=== PATIENT | male | born 1950 | race Caucasian/White ===

== ENCOUNTER → 2017-12-05 10:44 | Outpatient (CLI) | payer MEDICARE, OTHER, SELFPAY ==
[2017-12-05 11:06] LABS: Abs Immature Grans 0.01 k/cumm (0.0-0.09); Absolute Basophil Count 0.02 k/cumm (0.0-0.2); Absolute Eosinophil Count 0.02 k/cumm (0.0-0.7); Absolute Lymphocyte Count 0.22 k/cumm (1.2-3.4); Absolute Monocyte Count 0.57 k/cumm (0.11-0.7); Absolute Neutrophil Count 1.76 k/cumm (1.2-6.7); Basophils % 0.8; Eosinophils % 0.8; HCT 37.9 % (40.0-50.0); HGB 13.3 g/dL (13.5-17.5); Immature Grans % 0.4; Lymphocytes % 8.5; Mean Corp. HGB Concentration 35.1 g/dL (32.0-36.0); Mean Corpuscular Hemoglobin 29.2 pg (27.0-33.0); Mean Corpuscular Volume 83.3 fL (80-95); Monocytes % 21.9; Neutrophils % 67.6; Platelet Count 101 x1000/uL (130-400); RBC 4.55 m/cumm (4.50-6.00); RBC Distribution Width 17.5 % (11.8-14.1)
[2017-12-05 11:10] LABS: ALT 24 U/L (12-78); AST 15 U/L (15-37); Albumin 3.6 g/dL (3.4-5.0); Alkaline Phosphatase 74 U/L (46-116); Anion Gap 6.9 mmol/L (3-11); BUN 13 mg/dL (7-18); Bilirubin, Total 0.8 mg/dL (0.2-1.0); CO2 28.1 mmol/L (21.0-32.0); CREATININE 0.84 mg/dL (0.70-1.30); Calcium 8.6 mg/dL (8.5-10.1); Chloride 103 mmol/L (98-107); Glucose 171 mg/dL (70-100); Potassium 4.3 mmol/L (3.5-5.1); Sodium 138 mmol/L (136-145); Total Protein 7.1 g/dL (6.4-8.2)
== END ==
PROVIDERS: PCP Nurse Practitioner Family; Visit Provider Internal Medicine Medical Oncology
DX: C15.5 Malignant neoplasm of lower third of esophagus (principal)
CPT/HCPCS: 36415; 80053; 85025

== ENCOUNTER 2018-05-16 10:23 | Outpatient (CLI) | payer MEDICARE, OTHER, SELFPAY ==
[2018-05-16 10:44] LABS: Abs Immature Grans 0.01 k/cumm (0.0-0.09); Absolute Basophil Count 0.01 k/cumm (0.0-0.2); Absolute Eosinophil Count 0.06 k/cumm (0.0-0.7); Absolute Lymphocyte Count 0.88 k/cumm (1.2-3.4); Absolute Neutrophil Count 2.39 k/cumm (1.2-6.7); Basophils % 0.3; Eosinophils % 1.6; HCT 38.7 % (40.0-50.0); HGB 13.3 g/dL (13.5-17.5); Immature Grans % 0.3; Lymphocytes % 23.5; Mean Corp. HGB Concentration 34.4 g/dL (32.0-36.0); Mean Corpuscular Hemoglobin 28.5 pg (27.0-33.0); Mean Corpuscular Volume 82.9 fL (80-95); Mean Platelet Volume 9.5 fL (8.0-11.0); Monocytes % 10.7; Neutrophils % 63.6; Platelet Count 120 x1000/uL (130-400); RBC 4.67 m/cumm (4.50-6.00); RBC Distribution Width 14.9 % (11.8-14.1); White Blood Cell Count 3.75 k/cumm (4.4-10.8)
[2018-05-16 10:58] LABS: ALT 21 U/L (12-78); AST 12 U/L (15-37); Albumin 3.6 g/dL (3.4-5.0); Alkaline Phosphatase 69 U/L (46-116); Anion Gap 9.2 mmol/L (3-11); BUN 16 mg/dL (7-18); Bilirubin, Total 0.8 mg/dL (0.2-1.0); CO2 27.8 mmol/L (21.0-32.0); CREATININE 0.85 mg/dL (0.70-1.30); Calcium 9.2 mg/dL (8.5-10.1); Chloride 106 mmol/L (98-107); Glucose 111 mg/dL (70-100); Potassium 3.9 mmol/L (3.5-5.1); Sodium 143 mmol/L (136-145)
== END 2018-05-16 10:43 ==
PROVIDERS: PCP Nurse Practitioner Family; Visit Provider Internal Medicine Medical Oncology
DX: C15.5 Malignant neoplasm of lower third of esophagus (principal)
CPT/HCPCS: 36415; 80053; 85025

== ENCOUNTER → 2018-09-16 10:43 | Outpatient (BNVA) | payer MEDICARE, OTHER, SELFPAY | PROVIDERS: PCP Nurse Practitioner Family; Referring Provider Nurse Practitioner Family; Visit Provider Nurse Practitioner Gerontology | DX: N40.1 Benign prostatic hyperplasia with lower urinary tract symptoms (principal); N40.3 Nodular prostate with lower urinary tract symptoms; N21.0 Calculus in bladder; R97.20 Elevated prostate specific antigen [PSA]; R82.71 Bacteriuria; B96.89 Other specified bacterial agents as the cause of diseases classified elsewhere | CPT/HCPCS: 51705; 81003; 99205 ==

== ENCOUNTER 2018-09-16 12:17 | Outpatient (CLI) | payer MEDICARE, OTHER, SELFPAY ==
[2018-09-17 10:02] LABS: PSA, Screening 3.5 ng/ml (0-4.5)
== END 2018-09-16 12:37 ==
PROVIDERS: PCP Nurse Practitioner Family; Visit Provider Nurse Practitioner Gerontology
DX: N40.2 Nodular prostate without lower urinary tract symptoms (principal); Z12.5 Encounter for screening for malignant neoplasm of prostate; N40.1 Benign prostatic hyperplasia with lower urinary tract symptoms; N40.3 Nodular prostate with lower urinary tract symptoms; N21.0 Calculus in bladder; R97.20 Elevated prostate specific antigen [PSA]; R82.71 Bacteriuria; B96.89 Other specified bacterial agents as the cause of diseases classified elsewhere
CPT/HCPCS: 51705; 81003; 84153; 99204; 99205; 87086

== ENCOUNTER 2018-09-16 14:46 | Outpatient (REF) | payer MEDICARE, SELFPAY | END 2018-09-16 15:06 | LOC: LBN 14:46 | PROVIDERS: PCP Nurse Practitioner Family; Visit Provider Nurse Practitioner Gerontology | DX: N21.0 Calculus in bladder (principal) | CPT/HCPCS: 87077; 87086; 87186 ==

== ENCOUNTER → 2018-10-13 10:05 | Outpatient (BNVA) | payer MEDICARE, SELFPAY | PROVIDERS: PCP Nurse Practitioner Family; Visit Provider Urology | DX: Z87.440 Personal history of urinary (tract) infections (principal); N21.0 Calculus in bladder; N40.1 Benign prostatic hyperplasia with lower urinary tract symptoms | CPT/HCPCS: 99214 ==

== ENCOUNTER 2018-10-23 14:00 | Outpatient (CLI) | payer MEDICARE, SELFPAY ==
[2018-10-23 14:27] LABS: Abs Immature Grans 0.02 k/cumm (0.0-0.09); Absolute Basophil Count 0.01 k/cumm (0.0-0.2); Absolute Eosinophil Count 0.04 k/cumm (0.0-0.7); Absolute Lymphocyte Count 0.71 k/cumm (1.2-3.4); Absolute Monocyte Count 0.37 k/cumm (0.11-0.7); Absolute Neutrophil Count 2.83 k/cumm (1.2-6.7); Basophils % 0.3; HCT 35.5 % (40.0-50.0); HGB 12.1 g/dL (13.5-17.5); Immature Grans % 0.5; Lymphocytes % 17.8; Mean Corp. HGB Concentration 34.1 g/dL (32.0-36.0); Mean Corpuscular Hemoglobin 29.7 pg (27.0-33.0); Mean Corpuscular Volume 87.2 fL (80-95); Mean Platelet Volume 8.5 fL (8.0-11.0); Monocytes % 9.3; Neutrophils % 71.1; Platelet Count 166 x1000/uL (130-400); RBC 4.07 m/cumm (4.50-6.00); RBC Distribution Width 14.2 % (11.8-14.1); White Blood Cell Count 3.98 k/cumm (4.4-10.8)
[2018-10-23 14:36] LABS: ALT 15 U/L (12-78); AST 10 U/L (15-37); Albumin 3.2 g/dL (3.4-5.0); Alkaline Phosphatase 76 U/L (46-116); Anion Gap 9.5 mmol/L (3-11); BUN 23 mg/dL (7-18); Bilirubin, Total 0.4 mg/dL (0.2-1.0); CO2 27.5 mmol/L (21.0-32.0); CREATININE 0.85 mg/dL (0.70-1.30); Calcium 8.7 mg/dL (8.5-10.1); Chloride 107 mmol/L (98-107); Glucose 103 mg/dL (70-100); Potassium 4.1 mmol/L (3.5-5.1); Sodium 144 mmol/L (136-145)
== END 2018-10-23 14:20 ==
PROVIDERS: PCP Nurse Practitioner Family
DX: C15.9 Malignant neoplasm of esophagus, unspecified (principal)
CPT/HCPCS: 36415; 80053; 85025

== ENCOUNTER 2018-11-13 14:18 | Inpatient (IN) | payer MEDICARE, SELFPAY ==
[2018-11-13] VITALS (19 sets, daily range): BP systolic 63–134; BP diastolic 43–83; PULSE 59–96; RESP 16–19; TEMP 35.5–36.5; O2SAT 97–100
--- NOTE | 2018-11-13 11:27 | HPE_ITS ---
Date of service: 11/13/18 Time of Service: 11:28 Assessment and Plan (1) Bladder stones: Current visit: No Status: Acute His most recent CT scan does show a large stone in his bladder. We will move ahead with cystoscopy, holmium laser the stone and stone evacuation. Since bladder stones tend to be associated with bladder outlet obstruction, we will go ahead and vaporized the prostate at the same time. I would expect that he will stay in the hospital at least overnight for continuous bladder irrigation. (2) BPH loc w urin obs/LUTS: Current visit: No Status: Chronic History of Present Illness Chief Complaint: Chief complaint: Bladder stone Narrative: This is a 67-year-old gentleman who has a past history significant for stones in his bladder. He was previously under the care of urologists in [place], [place] and also at [facility]. He had been identified as having an elevated PSA. The providers in [facility] did an ultrasound-guided biopsy which showed no evidence of malignancy. When he was identified as having bladder stones, the provider in [place], [place] perform cystoscopy and cystolitholapaxy. The stones were reportedly uric acid at that time. He was referred to my practice with lower urinary tract symptoms. He has had a CT scan which shows recurrent stones in the bladder. He is having some pelvic discomfort which he believes is related to his stones. He presents for cystoscopy, holmium laser of bladder stones with stone removal and transurethral resection of the prostate for his bladder outlet obstruction. He has not gone into urinary retention, but he gets up 5 to 6 times a night to void. He has chronic back and abdominal pain that he believes may be related to his bladder stones. Review of Systems Review of Systems No fevers or chills No vision change. Difficulty swallowing s/p esophagectomy No diabetes or thyroid dysfunction No sputum production or hemoptysis No chest pain No nausea, vomiting. Has abdominal pain > 6 months No seizures, strokes or peripheral neuropathy No bleeding disorders or anemia No gout. Chronic back pain [facility] Medical History Atrial fibrillation (Chronic) BPH (benign prostatic hyperplasia) (Chronic) Coronary artery disease (Chronic) Esophageal cancer (Acute) GERD (gastroesophageal reflux disease) (Chronic) High cholesterol (Chronic) History of bladder stone (Acute) Hypertension (Chronic) Neoplasm of pituitary gland (Acute) JONATAN (obstructive sleep apnea) (Chronic) Skin cancer of face (Acute) Surgical History (Updated 11/13/18 @ 11:05 by Shaniqua Henriquez) History of cataract surgery (Chronic) History of esophageal surgery (Acute) History of esophagogastroduodenoscopy (EGD) (Chronic) History of prostate biopsy (Acute) History of tonsillectomy (Chronic) Hx of abdominal surgery (Acute) Hx of aortic valve replacement (Acute) Hx of CABG (Chronic) Hx of colonoscopy (Chronic) Social History Smoking/Tobacco Use Status: Former Tobacco Use Drug use: Never Substance use type: does not use Do you feel safe at home: Yes Do you feel safe in your relationship?: Yes Meds Home Medications Medication Instructions Recorded Confirmed Type aspirin 81 mg tablet,delayed 81 mg PO DAILY 09/16/18 11/13/18 History release atorvastatin 10 mg tablet 10 mg PO QHS 09/16/18 11/13/18 History docusate sodium 100 mg capsule 100 mg PO QHS 09/16/18 11/13/18 History finasteride 5 mg tablet 5 mg PO DAILY 09/16/18 11/13/18 History metoprolol succinate 25 mg 25 mg PO DAILY 09/16/18 11/13/18 History tablet,extended release 24 hr tamsulosin 0.4 mg capsule 0.4 mg PO DAILY 09/16/18 11/13/18 History trazodone 50 mg tablet 50 mg PO DAILY 09/16/18 11/13/18 History acetaminophen [Tylenol] 650 mg PO Q6H PRN 11/10/18 11/13/18 History ibuprofen 400 mg PO QID PRN 11/10/18 11/13/18 History magnesium hydroxide [Milk of 10 ml PO HS 11/10/18 11/13/18 History Magnesia] Allergies Allergy/AdvReac Type Severity Reaction Status Date / Time No Known Allergies Allergy Verified 11/10/18 11:15 Exam Narrative Exam Narrative: He is in no current distress. He is cooperative. His vital signs are documented elsewhere His neck has scars related to his previous esophageal surgery His lungs are clear Cardiac regular rate and rhythm Abdomen is soft with no peritoneal signs There is no edema in the lower extremities He is awake, alert and oriented. Results Last Vital Signs Temp 35.5 C L 11/13/18 11:25 Pulse 59 L 11/13/18 11:25 Resp 18 11/13/18 11:25 BP 130/83 11/13/18 11:25 Pulse Ox 100 11/13/18 11:25
[2018-11-13] MEDS: Lactated Ringers 1,000 ML 80 ML IV ×3 (12:10→14:53)
[2018-11-13] MEDS: Droperidol 5 MG/2 ML VIAL (12:22)
[2018-11-13] MEDS: FAMOTIDINE 20 MG/50 ML BAG 100 MG (12:22)
[2018-11-13] MEDS: GENTAMICIN 120 MG in Normal Saline 100 ML 206 MG IVPB (12:23)
[2018-11-13] MEDS: Lidocaine 2% Jelly 11 ML SYR (12:50)
--- NOTE | 2018-11-13 12:59 | PROST_PTH ---
PATIENT: UMAIR DAVISON LOC: ICU U#:[id number] AGE/SX: 67/M ROOM: ICU.219 RE11/13/[address]: Aide Restrepo : 1950 BED: A DIS: 11/20/2018 SPEC #: [id number] RECD: 11/13/18 17:42 STATUS: KENYA REQ #: [id number] LAUREN: 11/13/18 12:[address]: Jasper Marie DEPT: Surgical Specimen RECD BY: Lucero Mata ENTERED: 11/13/18 17:42 SP TYPE: PROST OTHR DR: Lindy Dixon Tissues: 1 - PROSTATE CURRETTINGS Procedures: GROSS AND MICRO LEVEL 4 Comments: [id number]
[2018-11-13] MEDS: Normal Saline Flush 10 ML SYR IV (15:45)
[2018-11-13] MEDS: Ketorolac 15 MG/ML VIAL IVP (19:49)
[2018-11-13] MEDS: Sulfameth/Trimeth DS TAB 1 TAB PO (19:49)
[2018-11-13] MEDS: Normal Saline 1,000 ML 1000 ML IV (22:45)
[2018-11-13 23:23] LABS: HCT 23.9 % (40.0-50.0); HGB 7.9 g/dL (13.5-17.5)
[2018-11-13] MEDS: Docusate Sodium 100 MG CAP PO (23:23)
[2018-11-13] MEDS: Atorvastatin 10 MG TAB PO (23:23)
[2018-11-13] MEDS: Milk of Magnesia 30 ML CUP 10 ML PO (23:23)
[2018-11-14] VITALS (14 sets, daily range): BP systolic 82–108; BP diastolic 58–69; PULSE 79–95; RESP 16–20; TEMP 36–37.2; O2SAT 96–100
[2018-11-14] MEDS: traZODone 50 MG TAB PO ×2 (00:36→21:23)
--- NOTE | 2018-11-14 02:41 | NUR.NOTE ---
Nursing Note:Pt. received post TURP, AO x 3. with CBI on progress, obtained a bloody but clear output. At 2000 hrs. Scheduled meds given ,one of them is Toradol , after few minutes, pt complained of having hot flushes and feeling not good as verbalized. CBI output started to slowed down, then having bladder cramps, irrigated 4 x and had some large size of blood clots. Continue to monitor and suddendly, pt reported dizziness and pale looking. Blood pressure checked in auto machine was low, did manually and remains low, director of public health made aware, MD came to examined pt. NS Bolus administered, changes on b/p reading noted. Pt is feeling better and no pain voiced out until this time, CBI output is pinkish clear output. At 02:27, 1 unit of RBC as ordered initialized. No reactions or unusual changes observed until this time to pt. Continue to monitor. Call lights within reach.
[2018-11-14] MEDS: Acetaminophen 325 MG TAB 650 MG PO ×3 (03:17→19:33)
[2018-11-14] MEDS: Lactated Ringers 1,000 ML 150 ML IV ×2 (05:04→09:31)
--- NOTE | 2018-11-14 07:30 | ROE_ITS ---
REPORT OF OPERATIVE PROCEDURE DATE OF PROCEDURE November 13, 2018 PREOPERATIVE DIAGNOSES 1. Bladder stone. 2. Bladder outlet obstruction. POSTOPERATIVE DIAGNOSES 1. Bladder stone. 2. Bladder outlet obstruction. 3. Pathology pending. PROCEDURE Cystoscopy, Holmium laser of bladder stones with stone evacuation, transurethral resection of the pro state with vaporization of prostate. SURGEON Jasper Marie M.D. ANESTHESIA General. COMPLICATIONS None. ESTIMATED BLOOD LOSS 250 cc HISTORY This is a 67-year-old gentleman who has a past history of bladder stones. His previous urologist had treated him with a cystoscopic procedure to remove the stones. He has been treated medically for his bladder outlet obstruction. He now has recurrence of his bladder stones. He has abdominal and back pain, which he believes is rel ated to the stones. He has urinary frequency and gets up an average of five to six times a night to v oid. He presents now for Holmium laser lithotripsy of his bladder stones and transurethral resection of the prostate to remove any bladder outlet obstruction and hopefully prevent future stone formation . DESCRIPTION OF PROCEDURES The patient was brought to the Operating Room on 11/13/18, after successful induction of General anest hesia he was placed in the dorsal lithotomy position. His genitalia was prepped and draped. A #22-Nepalese rigid cystoscope was passed through the urethra into the bladder. The urethra and bladde r were inspected with a 30-degree lens. The pendulous, bulbous and membranous urethras all appeared normal with no strictures. The prostatic urethra showed lateral lobe enlargement with prominent blood vessels along the prostate. The bladder neck was entered. The bladder mucosa was inspected. Two yellow colored stones were seen w ithin the bladder. Each of these stones measured more than 2 centimeters in largest dimension. We then utilized a 1000 Micron Holmium laser fiber to fracture the stones. We used a power setting of 1.5 and a rate of 8. The stones fragmented easily and we were able to clear all the fragments out. Ermelinda oakley sent the stone fragments to Pathology for stone analysis. We then removed the cystoscope and passed a #24-Nepalese resectoscope sheath through the urethra into t he bladder. Transurethral resection of the prostate was performed from the bladder neck out to the ve rumontanum. We utilized bipolar cautery, all resected tissue was evacuated and sent to Pathology for permanent section. We then switched to the vaporization ball and vaporized the remainder of the prostate back to the lev el of the prostatic capsule, bleeding points that were encountered were cauterized with the coagulati on current. At the completion of the procedure, no arterial bleeding was seen. We filled the bladder with irrigan t. We removed the resectoscope and passed a #24-Nepalese hematuria catheter through the urethra into th e bladder. The catheter balloon was inflated with 30 cc of sterile water. Continuous bladder irrigati on was begun, traction was placed on the catheter until the irrigant became clear. The patient tolerated this procedure well with no complications. CC: KARLA Hernández
--- NOTE | 2018-11-14 07:31 | W.PM.PROGNOT ---
Date of Service Date of service: 11/14/18 Time of Service: 08:28 Assessment and Plan (1) BPH loc w urin obs/LUTS: Current visit: No Status: Chronic In reviewing his PCP, [facility] and [place] records, it looks like his baseline systolic BP is between 90 and 110 and his baseline HR is @ 70. With last evening his blood transfusion, it looks like we are closer to his baseline numbers. Given the last evening his hypotensive episode and acute blood loss anemia, we will plan on running his bladder irrigation 1 additional day. If his blood pressure remains an issue, we will consider an additional unit of blood transfusion. The other clinical concern especially in light of his long-standing bladder stones would be urosepsis after his procedure. Right now there are no signs or symptoms of urosepsis but we will continue to monitor and be mindful of this possibility. (2) Bladder stones: Current visit: No Status: Acute Subjective Interval history since last seen: Chief complaint: Postoperative day #1 The patient developed hypotension and dizziness overnight. We checked a hemoglobin which showed acute blood loss anemia with a hemoglobin of 7.9 His blood pressure initially responded to a fluid bolus but then drifted downward again. We then gave him 1 unit of packed red blood cells. Since then, he has felt better with no additional drowsiness. His morning blood work is not yet available. He has required hand irrigation of his catheter for blood clots. He has not had any fever or chills He has no nausea or vomiting Exam Narrative Exam Narrative: He looks chronically ill, but his color is a bit better than yesterday after his blood transfusion His blood pressure is back to his baseline His abdomen is soft with no bladder distention His morning labs are still pending Objective Objective Clinical Data: Abnormal lab results 11/13/18 11/13/18 Range/Units 23:12 23:12 Hgb 7.9 L (13.5-17.5) g/dL Hct 23.9 L (40.0-50.0) % Crossmatch See Detail Vital Signs Temperature 36.2 C L 11/14/18 04:49 Temperature Source Tympanic 11/14/18 00:40 Pulse 81 11/14/18 07:15 Pulse Rhythm Regular 11/14/18 03:26 Respiratory Rate 20 11/14/18 04:49 Respiratory Effort Non-Labored 11/14/18 03:26 Respiratory Depth Normal 11/14/18 03:26 Respiratory Pattern Normal 11/14/18 03:26 Blood Pressure 94/64 L 11/14/18 07:15 Pulse Oximetry 100 11/14/18 04:49 Respiratory End-tidal CO2 28 11/13/18 14:58 Oxygen Delivery Method Room Air 11/14/18 04:49 Oxygen Flow Rate 0 11/14/18 04:49 Pain Level 3 11/14/18 03:17 Comment 11/14/18 00:40 Intake & Output 11/13/18 11/13/18 11/14/18 11:59 23:59 11:59 Intake Total 3083.000 / 3083.000 2270 / 2270 Output Total 250 / 250 Balance 2833.000 / 2833.000 2270 / 2270 Weight 74.7 kg 77.1 kg Intake: IV 2783.000 / 2783.000 1999 / 1999 Oral 300 / 300 Blood Product 250 / 250 Rbc Leuko Reduced Unit 250 / 250 [id number] Other 20 / 20 Rbc Leuko Reduced Unit 20 / 20 [id number] Output: Estimated Blood Loss 250 / 250 Other: Urine Color Dark Red [place] Urine Appearance Hematuria Hematuria Comment 4 x manual irrigation done and urinary bag changed. tried decreasing infusion rate, urine immediatly turned red, increased infusion rate again, urine now pink Emesis Description None Laboratory Results Hgb 7.9 g/dL (13.5-17.5) L 11/13/18 23:12 Hct 23.9 % (40.0-50.0) L 11/13/18 23:12 Patient ABO/Rh O Negative 11/13/18 23:12 Antibody Screen Negative 11/13/18 23:12 Crossmatch See Detail 11/13/18 23:12
[2018-11-14 08:27] LABS: Anion Gap 9.3 mmol/L (3-11); BUN 28 mg/dL (7-18); CO2 24.7 mmol/L (21.0-32.0); Calcium 8.5 mg/dL (8.5-10.1); Chloride 105 mmol/L (98-107); Glucose 138 mg/dL (70-100); Potassium 4.5 mmol/L (3.5-5.1); Sodium 139 mmol/L (136-145)
[2018-11-14 08:29] LABS: Abs Immature Grans 0.02 k/cumm (0.0-0.09); Absolute Basophil Count 0.01 k/cumm (0.0-0.2); Absolute Lymphocyte Count 0.82 k/cumm (1.2-3.4); Absolute Monocyte Count 1.04 k/cumm (0.11-0.7); Absolute Neutrophil Count 7.67 k/cumm (1.2-6.7); Basophils % 0.1; HCT 25.9 % (40.0-50.0); HGB 8.6 g/dL (13.5-17.5); Immature Grans % 0.2; Lymphocytes % 8.6; Mean Corp. HGB Concentration 33.2 g/dL (32.0-36.0); Mean Corpuscular Hemoglobin 28.8 pg (27.0-33.0); Mean Corpuscular Volume 86.6 fL (80-95); Mean Platelet Volume 9.5 fL (8.0-11.0); Monocytes % 10.9; Neutrophils % 80.2; Platelet Count 190 x1000/uL (130-400); RBC 2.99 m/cumm (4.50-6.00); RBC Distribution Width 14.2 % (11.8-14.1); White Blood Cell Count 9.56 k/cumm (4.4-10.8)
[2018-11-14] MEDS: Sulfameth/Trimeth DS TAB 1 TAB PO ×2 (08:38→19:29)
[2018-11-14] MEDS: Finasteride 5 MG TAB PO (08:38)
[2018-11-14] MEDS: Tamsulosin 0.4 MG CAPCR PO (08:38)
[2018-11-14] MEDS: HYDROmorphone 2 MG/ML VIAL 0.5 MG IVP (14:38)
--- NOTE | 2018-11-14 16:54 | PDOC.CMIN ---
- If Service Date Differs Date of service: 11/14/18 Time of Service: 16:54 Care Management Initial Assess REASON FOR HOSPITALIZATION:: Bladder stone PAST MEDICAL HISTORY/PAST SURGICAL HISTORY:: Afib, BPH, CAD, esopageal ca, gerd, high cholsterol, hypertension, neoplasam of pituitary, sarah, skin ca. Surgical: cataract sx, esophageal, prostate biopsy, elevated PSA, tonsilectomy, aortic valve replacement, CABG PREVIOUS FUNCTIONAL STATUS/SOCIAL/FAMILY SUPPORTS:: Pt lives in [place], [place] with his , He has three children that are grown, he retired from factory work. He has had several health problems and multiple surgeries since 2015. He states he use to like to salas and fish but he has been unwell the last few years has not been able to. CURRENT FUNCTIONAL STATUS:: Pt is engaged with CM during assessment he is hopeful he will be discharged over the weekend. He understand he plan os to return home with the burris and have a voiding trial at Dr. Marie?s office on Saturday. He has been home with a burris in the past he does not think he will need home health this time. If the needs change he would be willing to have them in and it would be [facility]. ADVANCE DIRECTIVES:: None on file he does not want to complete at this time. Has patient been provided with information about the portal?: Yes Did the patient sign up for the portal?: No CODE STATUS:: Full Code INSURANCE COVERAGE / FINANCIAL ISSUES:: Medicare CURRENT HOME/COMMUNITY SERVICES/EQUIPMENT:: None POTENTIAL DISCHARGE NEEDS:: follow up with Dr. Marie and primary care after discharge. PATIENT/FAMILY EDUCATION NEEDS:: Discharge education, limitation and follow up plan of care. CM reviewed needs related to burris and education of what ti contact provider. Pt asks who do i call if the indwelling cath does not drain. CM reviewed calling Dr. Marie at the main hospital number. ANTICIPATED BARRIERS TO DISCHARGE:: none TRANSPORTATION:: Via private car with spouse. PLAN:: Alan continues to be acute he does have a continous bladder irrigation in place. He remians on IV fluids. He will be discharged when medically ready. CM to continue to assess for ongoing needs and discharge planning.
[2018-11-14] MEDS: Lactated Ringers 1,000 ML 100 ML IV (19:32)
[2018-11-14] MEDS: Milk of Magnesia 30 ML CUP 10 ML PO (21:23)
[2018-11-14] MEDS: Atorvastatin 10 MG TAB PO (21:23)
[2018-11-14] MEDS: Docusate Sodium 100 MG CAP PO (21:23)
[2018-11-15] VITALS (100 sets, daily range): BP systolic 73–120; BP diastolic 47–84; PULSE 68–166; RESP 11–60; TEMP 36.6–37.5; O2SAT 89–100
[2018-11-15 04:28] LABS: HCT 22.4 % (40.0-50.0); HGB 7.6 g/dL (13.5-17.5); Mean Corp. HGB Concentration 33.9 g/dL (32.0-36.0); Mean Corpuscular Hemoglobin 29.3 pg (27.0-33.0); Mean Corpuscular Volume 86.5 fL (80-95); Mean Platelet Volume 8.7 fL (8.0-11.0); Platelet Count 143 x1000/uL (130-400); RBC 2.59 m/cumm (4.50-6.00); RBC Distribution Width 14.5 % (11.8-14.1); White Blood Cell Count 6.39 k/cumm (4.4-10.8)
--- NOTE | 2018-11-15 04:32 | W.PM.PROGNOT ---
Date of Service Date of service: 11/15/18 Time of Service: 04:32 Assessment and Plan (1) Atrial fibrillation: Current visit: Yes Status: Chronic PAF, probable rate related ischemia. Will transfer ICU, control rate with added beta haim, check electrolytes, Mg and troponins. Subjective Interval history since last seen: 67 male s/p bladder stone, h/o PAF, CAD. Patient [id number] not feeling right, AF with RVR noted. Patient states to me he feels a little nauseous, no CP or SOB. On exam BP 88/50 with pulse 168; lungs clear, heart irr/irr. EKG shows AF with NSSTTWCs Objective Objective Clinical Data: Abnormal lab results 11/13/18 11/14/18 11/14/18 Range/Units 23:12 07:10 07:10 RBC 2.99 L (4.50-6.00) m/cumm Hgb 8.6 L (13.5-17.5) g/dL Hct 25.9 L (40.0-50.0) % RDW 14.2 H (11.8-14.1) % Absolute Neutrophils 7.67 H (1.2-6.7) k/cumm Absolute Lymphocytes 0.82 L (1.2-3.4) k/cumm Absolute Monocytes 1.04 H (0.11-0.7) k/cumm BUN 28 H (7-18) mg/dL Glucose 138 H (70-100) mg/dL Crossmatch See Detail 11/15/18 Range/Units 04:20 RBC 2.59 L (4.50-6.00) m/cumm Hgb 7.6 L (13.5-17.5) g/dL Hct 22.4 L (40.0-50.0) % RDW 14.5 H (11.8-14.1) % Absolute Neutrophils (1.2-6.7) k/cumm Absolute Lymphocytes (1.2-3.4) k/cumm Absolute Monocytes (0.11-0.7) k/cumm BUN (7-18) mg/dL Glucose (70-100) mg/dL Crossmatch Vital Signs Temperature 36.8 C 11/15/18 03:50 Temperature Source Skin 11/15/18 03:50 Pulse 113 H 11/15/18 03:50 Pulse Rhythm Regular 11/14/18 18:56 Respiratory Rate 18 11/15/18 03:50 Respiratory Effort Non-Labored 11/14/18 18:56 Respiratory Depth Normal 11/14/18 18:56 Respiratory Pattern Normal 11/14/18 18:56 Blood Pressure 88/50 L 11/15/18 03:50 Pulse Oximetry 100 11/15/18 03:50 Respiratory End-tidal CO2 28 11/13/18 14:58 Oxygen Delivery Method Room Air 11/15/18 03:50 Oxygen Flow Rate 0 11/15/18 03:50 Pain Level 0 11/15/18 03:50 Comment 11/15/18 03:50 Intake & Output 11/14/18 11/14/18 11/15/18 11:59 23:59 11:59 Intake Total 3057.5 / 5797.5 2740 / 5797.5 300 / 300 Balance 3057.5 / 5797.5 2740 / 5797.5 300 / 300 Intake: IV 2667.5 / 4667.5 2000 / 4667.5 Oral 120 / 860 740 / 860 300 / 300 Blood Product 250 / 250 Rbc Leuko Reduced Unit 250 / 250 [id number] Other 20 / Rbc Leuko Reduced Unit / [id number] Other: Urine Color Pale [place] Urine Appearance Hematuria Clear Cloudy Comment No increase in blood flow when pt moved to side of bed. Irrigigated by Dr Hilliard at 1700 hrs. and no clots obtained, been flowing clear pinkish output. Laboratory Results WBC 6.39 k/cumm (4.4-10.8) D 11/15/18 04:20 RBC 2.59 m/cumm (4.50-6.00) L 11/15/18 04:20 Hgb 7.6 g/dL (13.5-17.5) L 11/15/18 04:20 Hct 22.4 % (40.0-50.0) L 11/15/18 04:20 MCV 86.5 fL (80-95) 11/15/18 04:20 MCH 29.3 pg (27.0-33.0) 11/15/18 04:20 MCHC 33.9 g/dL (32.0-36.0) 11/15/18 04:20 RDW 14.5 % (11.8-14.1) H 11/15/18 04:20 Plt Count 143 x1000/uL (130-400) 11/15/18 04:20 MPV 8.7 fL (8.0-11.0) 11/15/18 04:20 Immature Gran % 0.2 11/14/18 07:10 80.2 11/14/18 07:10 8.6 11/14/18 07:10 10.9 11/14/18 07:10 0.0 11/14/18 07:10 0.1 11/14/18 07:10 Absolute Neutrophils 7.67 k/cumm (1.2-6.7) H 11/14/18 07:10 Absolute Lymphocytes 0.82 k/cumm (1.2-3.4) L 11/14/18 07:10 Absolute Monocytes 1.04 k/cumm (0.11-0.7) H 11/14/18 07:10 Absolute Eosinophils 0.00 k/cumm (0.0-0.7) 11/14/18 07:10 Absolute Basophils 0.01 k/cumm (0.0-0.2) 11/14/18 07:10 Sodium 139 mmol/L (136-145) 11/14/18 07:10 Potassium 4.5 mmol/L (3.5-5.1) 11/14/18 07:10 Chloride 105 mmol/L (98-107) 11/14/18 07:10 Carbon Dioxide 24.7 mmol/L (21.0-32.0) 11/14/18 07:10 9.3 mmol/L (3-11) 11/14/18 07:10 BUN 28 mg/dL (7-18) H 11/14/18 07:10 1.10 mg/dL (0.70-1.30) 11/14/18 07:10 >= 60.00 (mL/min/1.73m2) 11/14/18 07:10 Glucose 138 mg/dL (70-100) H 11/14/18 07:10 Calcium 8.5 mg/dL (8.5-10.1) 11/14/18 07:10 Patient ABO/Rh O Negative 11/13/18 23:12 Antibody Screen Negative 11/13/18 23:12 Crossmatch See Detail 11/13/18 23:12
[2018-11-15 04:55] LABS: Troponin I < 0.05 ng/mL (0.00-0.06)
[2018-11-15 04:58] LABS: Albumin 2.7 g/dL (3.4-5.0); BUN 24 mg/dL (7-18); Bilirubin, Total 0.5 mg/dL (0.2-1.0); CREATININE 0.97 mg/dL (0.70-1.30); Calcium 8.4 mg/dL (8.5-10.1); Glucose 123 mg/dL (70-100); Total Protein 5.7 g/dL (6.4-8.2)
--- NOTE | 2018-11-15 04:58 | NUR.NOTE ---
Nursing Note: Upon receipt of patient after start of shift at 0300, pt had been c/o not feeling right, feeling slightly nauseous, and slightly dizzy. He had a similar episode the night before however this time felt different. VS at this time with BP 95/61, recheck after several minutes 88/50. HR elevated at 113, irregularly irregular. Denies chest pain or pressure. While patient hooked to sat monitor, heart rate up to 150's. Charge nurse already aware, speaking with doctor with order for EKG. See those results. Seen by hospitalist and transferred to ICU at 0445.
[2018-11-15 04:59] LABS: ALT 22 U/L (12-78); AST 10 U/L (15-37); Alkaline Phosphatase 104 U/L (46-116); Anion Gap 10.5 mmol/L (3-11); CO2 24.5 mmol/L (21.0-32.0); Chloride 106 mmol/L (98-107); Potassium 3.8 mmol/L (3.5-5.1); Sodium 141 mmol/L (136-145)
[2018-11-15] MEDS: Metoprolol 5 MG/5 ML VIAL IVP ×2 (05:08→05:25)
[2018-11-15] MEDS: Lactated Ringers 1,000 ML 100 ML IV ×3 (05:14→23:00)
[2018-11-15] MEDS: Verapamil 5 MG/2 ML VIAL IVP ×2 (05:40→06:04)
[2018-11-15] MEDS: traMADol 50 MG TAB PO (06:33)
[2018-11-15] MEDS: Verapamil 80 MG TAB 40 MG PO (06:50)
--- NOTE | 2018-11-15 07:25 | PDOC.CMPRO ---
- If Service Date Differs Date of service: 11/15/18 Time of Service: 07:25 Care Management Progress Note S/O:Alan was sitting up in bed talking with his when CM entered the room. He was pleasant and engaged readily, answering questions freely. Alan was transferred to the ICU during the night following an episode of rapid atrial fibrillation. He states he feels better but does not expect to go home until Saturday. He has received another unit of blood for a drop in Hgb from 8.6 yesterday to 7.6 this morning. The CBI has been stopped at this time. A: Alan is a 67 year old gentleman admitted to [facility] on 11/13/18 with a bladder stone P:Alan is currently in the ICu because of an episode of afib with RVR. His CBI has been stopped. he remains on IV fluids. He will be discharged when medically ready. CM to continue to assess for ongoing needs and will provide support to patient, family and discharge planning.
[2018-11-15] MEDS: Sulfameth/Trimeth DS TAB 1 TAB PO ×2 (08:05→20:33)
[2018-11-15] MEDS: Tamsulosin 0.4 MG CAPCR PO (08:05)
[2018-11-15] MEDS: Metoprolol CR 25 MG TABCR PO (08:06)
[2018-11-15] MEDS: Finasteride 5 MG TAB PO (08:06)
--- NOTE | 2018-11-15 08:21 | W.PM.PROGNOT ---
Date of Service Date of service: 11/15/18 Time of Service: 08:21 Subjective Interval history since last seen: Transferred to the ICU overnight due to rapid Afib. Remains rapid, with HR 120-150's. BP's still in 80's. Other than his chronic back pain, asymptomatic. Objective Objective Clinical Data: Abnormal lab results 11/14/18 11/14/18 11/15/18 Range/Units 07:10 07:10 04:20 RBC 2.99 L 2.59 L (4.50-6.00) m/cumm Hgb 8.6 L 7.6 L (13.5-17.5) g/dL Hct 25.9 L 22.4 L (40.0-50.0) % RDW 14.2 H 14.5 H (11.8-14.1) % Absolute Neutrophils 7.67 H (1.2-6.7) k/cumm Absolute Lymphocytes 0.82 L (1.2-3.4) k/cumm Absolute Monocytes 1.04 H (0.11-0.7) k/cumm BUN 28 H (7-18) mg/dL Glucose 138 H (70-100) mg/dL Calcium (8.5-10.1) mg/dL AST (15-37) U/L Total Protein (6.4-8.2) g/dL Albumin (3.4-5.0) g/dL 11/15/18 Range/Units 04:20 RBC (4.50-6.00) m/cumm Hgb (13.5-17.5) g/dL Hct (40.0-50.0) % RDW (11.8-14.1) % Absolute Neutrophils (1.2-6.7) k/cumm Absolute Lymphocytes (1.2-3.4) k/cumm Absolute Monocytes (0.11-0.7) k/cumm BUN 24 H (7-18) mg/dL Glucose 123 H (70-100) mg/dL Calcium 8.4 L (8.5-10.1) mg/dL AST 10 L (15-37) U/L Total Protein 5.7 L (6.4-8.2) g/dL Albumin 2.7 L (3.4-5.0) g/dL Vital Signs Temperature 37.3 C 11/15/18 06:33 Temperature Source Skin 11/15/18 03:50 Pulse 110 H 11/15/18 06:34 Pulse Rhythm Irregular 11/15/18 03:50 Respiratory Rate 18 11/15/18 03:50 Respiratory Effort 11/15/18 03:50 Respiratory Depth Normal 11/15/18 03:50 Respiratory Pattern Normal 11/15/18 03:50 Blood Pressure 80/53 L 11/15/18 06:34 Pulse Oximetry 100 11/15/18 03:50 Respiratory End-tidal CO2 28 11/13/18 14:58 Oxygen Delivery Method Room Air 11/15/18 03:50 Oxygen Flow Rate 0 11/15/18 03:50 Pain Level 7 11/15/18 06:33 Comment 11/15/18 03:50 Intake & Output 11/14/18 11/14/18 11/15/18 11:59 23:59 11:59 Intake Total 3057.5 / 5797.5 2740 / 5797.5 1381.667 / 1381.667 Balance 3057.5 / 5797.5 2740 / 5797.5 1381.667 / 1381.667 Intake: IV 2667.5 / 4667.5 2000 / 4667.5 1081.667 / 1081.667 Oral 120 / 860 740 / 860 300 / 300 Blood Product 250 / 250 Rbc Leuko Reduced Unit 250 / 250 [id number] Other 20 / 20 Rbc Leuko Reduced Unit 20 / 20 [id number] Other: Urine Color Pale [place] Pale Urine Appearance Hematuria Clear Clear Cloudy Comment No increase in blood flow when pt moved to side of bed. Irrigigated by Dr Hilliard at 1700 hrs. and no clots obtained, been flowing clear pinkish output. Laboratory Results WBC 6.39 k/cumm (4.4-10.8) D 11/15/18 04:20 RBC 2.59 m/cumm (4.50-6.00) L 11/15/18 04:20 Hgb 7.6 g/dL (13.5-17.5) L 11/15/18 04:20 Hct 22.4 % (40.0-50.0) L 11/15/18 04:20 MCV 86.5 fL (80-95) 11/15/18 04:20 MCH 29.3 pg (27.0-33.0) 11/15/18 04:20 MCHC 33.9 g/dL (32.0-36.0) 11/15/18 04:20 RDW 14.5 % (11.8-14.1) H 11/15/18 04:20 Plt Count 143 x1000/uL (130-400) 11/15/18 04:20 MPV 8.7 fL (8.0-11.0) 11/15/18 04:20 Immature Gran % 0.2 11/14/18 07:10 80.2 11/14/18 07:10 8.6 11/14/18 07:10 10.9 11/14/18 07:10 0.0 11/14/18 07:10 0.1 11/14/18 07:10 Absolute Neutrophils 7.67 k/cumm (1.2-6.7) H 11/14/18 07:10 Absolute Lymphocytes 0.82 k/cumm (1.2-3.4) L 11/14/18 07:10 Absolute Monocytes 1.04 k/cumm (0.11-0.7) H 11/14/18 07:10 Absolute Eosinophils 0.00 k/cumm (0.0-0.7) 11/14/18 07:10 Absolute Basophils 0.01 k/cumm (0.0-0.2) 11/14/18 07:10 Sodium Cancelled 11/15/18 04:45 Potassium Cancelled 11/15/18 04:45 Chloride Cancelled 11/15/18 04:45 Carbon Dioxide Cancelled 11/15/18 04:45 Cancelled 11/15/18 04:45 BUN 24 mg/dL (7-18) H 11/15/18 04:20 0.97 mg/dL (0.70-1.30) 11/15/18 04:20 >= 60.00 (mL/min/1.73m2) 11/15/18 04:20 Glucose 123 mg/dL (70-100) H 11/15/18 04:20 Calcium 8.4 mg/dL (8.5-10.1) L 11/15/18 04:20 Magnesium 2.0 mg/dL (1.8-2.4) 11/15/18 04:20 0.5 mg/dL (0.2-1.0) 11/15/18 04:20 AST 10 U/L (15-37) L 11/15/18 04:20 ALT 22 U/L (12-78) 11/15/18 04:20 104 U/L (46-116) 11/15/18 04:20 Cancelled 11/15/18 04:45 5.7 g/dL (6.4-8.2) L 11/15/18 04:20 2.7 g/dL (3.4-5.0) L 11/15/18 04:20 Patient ABO/Rh O Negative 11/13/18 23:12 Antibody Screen Negative 11/13/18 23:12 Crossmatch See Detail 11/13/18 23:12
[2018-11-15] MEDS: Lactated Ringers 1,000 ML 1000 ML IV (08:25)
[2018-11-15] MEDS: Acetaminophen 325 MG TAB 650 MG PO ×2 (09:34→23:35)
--- NOTE | 2018-11-15 10:07 | W.PM.PROGNOT ---
Date of Service Date of service: 11/15/18 Time of Service: 10:07 Assessment and Plan (1) Atrial fibrillation: Current visit: Yes Status: Chronic I appreciate the hopitalists excellent care. (2) BPH loc w urin obs/LUTS: Current visit: No Status: Chronic We will stop his CBI. This should allow us to measure I/O much more accurately. If his urine clots off or becomes overly thick, we can restart the CBI. (3) Bladder stones: Current visit: No Status: Acute Subjective Interval history since last seen: Pt developed atrial fibrillation overnight requiring transfer to ICU. He had some nausea at the onset, but no actual chest pain. His CBI has been clear overnight with no clots or episodes of retention. Exam Narrative Exam Narrative: He does not appear septic or toxic He is awake and alert His CBI is clear Objective Objective Clinical Data: Abnormal lab results 11/13/18 11/15/18 11/15/18 Range/Units 23:12 04:20 04:20 RBC 2.59 L (4.50-6.00) m/cumm Hgb 7.6 L (13.5-17.5) g/dL Hct 22.4 L (40.0-50.0) % RDW 14.5 H (11.8-14.1) % BUN 24 H (7-18) mg/dL Glucose 123 H (70-100) mg/dL Calcium 8.4 L (8.5-10.1) mg/dL AST 10 L (15-37) U/L Troponin I (0.00-0.06) ng/mL Total Protein 5.7 L (6.4-8.2) g/dL Albumin 2.7 L (3.4-5.0) g/dL Crossmatch See Detail 11/15/18 Range/Units 09:14 RBC (4.50-6.00) m/cumm Hgb (13.5-17.5) g/dL Hct (40.0-50.0) % RDW (11.8-14.1) % BUN (7-18) mg/dL Glucose (70-100) mg/dL Calcium (8.5-10.1) mg/dL AST (15-37) U/L Troponin I 0.10 H* (0.00-0.06) ng/mL Total Protein (6.4-8.2) g/dL Albumin (3.4-5.0) g/dL Crossmatch Vital Signs Temperature 37.3 C 11/15/18 06:33 Temperature Source Temporal Artery Scan 11/15/18 04:45 Pulse 115 H 11/15/18 08:30 Pulse Rhythm Irregular 11/15/18 03:50 Pulse 133 H 11/15/18 08:31 Respiratory Rate 19 11/15/18 08:31 Respiratory Effort Non-Labored 11/15/18 04:45 Respiratory Depth Normal 11/15/18 04:45 Respiratory Pattern Normal 11/15/18 04:45 Blood Pressure 88/64 L 11/15/18 08:30 Blood Pressure Mean 70 11/15/18 08:30 Blood Pressure Position Supine 11/15/18 04:45 Pulse Oximetry 100 11/15/18 08:30 Respiratory End-tidal CO2 28 11/13/18 14:58 Oxygen Delivery Method Room Air 11/15/18 04:45 Oxygen Flow Rate 0 11/15/18 04:45 Pain Level 5 11/15/18 09:34 Comment 11/15/18 03:50 Intake & Output 11/14/18 11/14/18 11/15/18 11:59 23:59 11:59 Intake Total 3057.5 / 5797.5 2740 / 5797.5 2580.000 / 2580.000 Balance 3057.5 / 5797.5 2740 / 5797.5 2580.000 / 2580.000 Weight 83.1 kg Intake: IV 2667.5 / 4667.5 2000 / 4667.5 2280.000 / 2280.000 Oral 120 / 860 740 / 860 300 / 300 Blood Product 250 / 250 Rbc Leuko Reduced Unit 250 / 250 [id number] Other 20 / 20 Rbc Leuko Reduced Unit 20 / 20 [id number] Other: Urine Color Pale [place] Pale Urine Appearance Hematuria Clear Clear Cloudy Comment No increase in blood flow when pt moved to side of bed. Irrigigated by Dr Hilliard at 1700 hrs. and no clots obtained, been flowing clear pinkish output. CBI draining clear urine/liquid w/o pink or clots. Laboratory Results WBC 6.39 k/cumm (4.4-10.8) D 11/15/18 04:20 RBC 2.59 m/cumm (4.50-6.00) L 11/15/18 04:20 Hgb 7.6 g/dL (13.5-17.5) L 11/15/18 04:20 Hct 22.4 % (40.0-50.0) L 11/15/18 04:20 MCV 86.5 fL (80-95) 11/15/18 04:20 MCH 29.3 pg (27.0-33.0) 11/15/18 04:20 MCHC 33.9 g/dL (32.0-36.0) 11/15/18 04:20 RDW 14.5 % (11.8-14.1) H 11/15/18 04:20 Plt Count 143 x1000/uL (130-400) 11/15/18 04:20 MPV 8.7 fL (8.0-11.0) 11/15/18 04:20 Immature Gran % 0.2 11/14/18 07:10 80.2 11/14/18 07:10 8.6 11/14/18 07:10 10.9 11/14/18 07:10 0.0 11/14/18 07:10 0.1 11/14/18 07:10 Absolute Neutrophils 7.67 k/cumm (1.2-6.7) H 11/14/18 07:10 Absolute Lymphocytes 0.82 k/cumm (1.2-3.4) L 11/14/18 07:10 Absolute Monocytes 1.04 k/cumm (0.11-0.7) H 11/14/18 07:10 Absolute Eosinophils 0.00 k/cumm (0.0-0.7) 11/14/18 07:10 Absolute Basophils 0.01 k/cumm (0.0-0.2) 11/14/18 07:10 Sodium Cancelled 11/15/18 04:45 Potassium Cancelled 11/15/18 04:45 Chloride Cancelled 11/15/18 04:45 Carbon Dioxide Cancelled 11/15/18 04:45 Cancelled 11/15/18 04:45 BUN 24 mg/dL (7-18) H 11/15/18 04:20 0.97 mg/dL (0.70-1.30) 11/15/18 04:20 >= 60.00 (mL/min/1.73m2) 11/15/18 04:20 Glucose 123 mg/dL (70-100) H 11/15/18 04:20 Calcium 8.4 mg/dL (8.5-10.1) L 11/15/18 04:20 Magnesium 2.0 mg/dL (1.8-2.4) 11/15/18 04:20 0.5 mg/dL (0.2-1.0) 11/15/18 04:20 AST 10 U/L (15-37) L 11/15/18 04:20 ALT 22 U/L (12-78) 11/15/18 04:20 104 U/L (46-116) 11/15/18 04:20 0.10 ng/mL (0.00-0.06) H* 11/15/18 09:14 5.7 g/dL (6.4-8.2) L 11/15/18 04:20 2.7 g/dL (3.4-5.0) L 11/15/18 04:20 Patient ABO/Rh O Negative 11/13/18 23:12 Antibody Screen Negative 11/13/18 23:12 Crossmatch See Detail 11/13/18 23:12
[2018-11-15 10:23] LABS: NT-proBNP 2011 pg/mL
[2018-11-15] MEDS: Digoxin 0.5 MG/2 ML AMP 0.125 MG IVP (10:28)
[2018-11-15] MEDS: diphenhydrAMINE 25 MG CAP PO (10:38)
--- NOTE | 2018-11-15 11:23 | MCONE_ITS ---
Date of service: 11/15/18 Time of Service: 11:23 Assessment and Plan (1) Atrial fibrillation with rapid ventricular response: Current visit: Yes Status: Acute Previously required cardioversion, which we might have to consider. At this time, ruling out sepsis (bacteremia) - checking blood cultures, ruling out PE (CTA ordered), transfusing 1 unit pRBC's. I doubt adrenal insufficiency - sodium and BG are ok on this am's labs. Keep in ICU. Would continue digoxin if BP's continue to be low. Discussed with Dr Marie (2) Hypotension (arterial): Current visit: Yes Status: Acute Hydrating/transfusing IVF. Avoid AV oliverio agents w/ BP effects. (3) Acute anemia: Current visit: Yes Status: Acute Transfusing a unit of pRBC's now. (4) Bladder stones: Current visit: No Status: Acute s/p evacuation - defer to primary team (5) BPH loc w urin obs/LUTS: Current visit: No Status: Chronic s/p vaporization of prostate, CBI d/c'ed. Defer to primary team. History of Present Illness Chief Complaint: Consult for low blood pressures and rapid Afib Narrative: Mr Cantu is a 67 year old male with PMHx of paroxysmal Afib previously requiring cardioversion, not on anticoagulation, CAD s/p CABG x 1, NIDDM2, h/o bioprosthetic aortic valve replacement, HTN, hyperlipidemia, pituiatry adenoma resection (not requiring hormonal replacement), JONATAN, esophageal cancer, BPH with bladder outlet obstruction, admitted to Dr Marie's service on 11/13/18 for bladder stone evacuation and prostate vaporization on 11/13/18. Postoperatively, the patient was initiated on CBI. He was transferred to the ICU overnight with hospitalist consult due to going into rapid Afib and becoming hypotensive. Since he went into rapid Afib, he was tried on IV lopressor and IV verapamil, neither of which resulted in significant slowing down of his rate. Digoxine did seem to slow his heart rate into 110's. He is being aggressively hydrated, but despite this has systolic blood pressures in 80's and 70's. He is asymptomatic at this time. Importantly, he is anemic with Hgb of 7.6, down from his baseline of about 12. Consults Consult date: 11/15/18 Requesting physician: Jasper Marie Review of Systems Review of Systems 12 systems reviewed. Pertinent positives and negatives are as per HPI [facility] Medical History (Updated 11/15/18 @ 11:38 by Aide Restrepo MD) Atrial fibrillation (Chronic) BPH (benign prostatic hyperplasia) (Chronic) Coronary artery disease (Chronic) Esophageal cancer (Acute) GERD (gastroesophageal reflux disease) (Chronic) High cholesterol (Chronic) History of bladder stone (Acute) Hypertension (Chronic) Neoplasm of pituitary gland (Acute) JONATAN (obstructive sleep apnea) (Chronic) Skin cancer of face (Acute) Surgical History (Updated 11/13/18 @ 11:05 by Shaniqua Henriquez) History of cataract surgery (Chronic) History of esophageal surgery (Acute) History of esophagogastroduodenoscopy (EGD) (Chronic) History of prostate biopsy (Acute) History of tonsillectomy (Chronic) Hx of abdominal surgery (Acute) Hx of aortic valve replacement (Acute) Hx of CABG (Chronic) Hx of colonoscopy (Chronic) Social History Smoking/Tobacco Use Status: Former Tobacco Use Drug use: Never Substance use type: does not use Do you feel safe at home: Yes Do you feel safe in your relationship?: Yes Exam Narrative Exam Narrative: General: Middle-aged male, pale, comfortable laying flat in bed, not in distress Neuro: A&Ox3, no focal deficits Psych: appropriate speech pattern/content Skin: intact HEENT: atraumatic, normocephalic, EOMI, MMM Heart: Irregularly irregular rhythm, tachycardic, quiet FREDDY Lungs: CTAB GI: abdomen is soft, nontender, nondistended Extremities: no e/c/c BLE's, trace pedal pulses B Results Last Vital Signs Temp 37.3 C 11/15/18 06:33 Pulse 113 H 11/15/18 10:28 Resp 19 11/15/18 08:31 BP 81/58 L 11/15/18 10:28 Pulse Ox 100 11/15/18 08:30 Labs : 11/15/18 04:20 11/15/18 04:20 Laboratory Results - last 24 hr 11/13/18 11/15/18 11/15/18 23:12 04:20 04:20 WBC 6.39 D RBC 2.59 L Hgb 7.6 L Hct 22.4 L MCV 86.5 MCH 29.3 MCHC 33.9 RDW 14.5 H Plt Count 143 MPV 8.7 Sodium 141 Potassium 3.8 Chloride 106 Carbon Dioxide 24.5 Anion Gap 10.5 BUN 24 H Creatinine 0.97 Estimated GFR/1.73 m2 >= 60.00 Glucose 123 H Calcium 8.4 L Magnesium Total Bilirubin 0.5 AST 10 L ALT 22 Alkaline Phosphatase 104 Troponin I NT-Pro-B Natriuret Pep Total Protein 5.7 L Albumin 2.7 L Patient ABO/Rh O Negative Antibody Screen Negative Crossmatch See Detail 11/15/18 11/15/18 11/15/18 04:20 04:20 04:45 WBC RBC Hgb Hct MCV MCH MCHC RDW Plt Count MPV Sodium Cancelled Potassium Cancelled Chloride Cancelled Carbon Dioxide Cancelled Anion Gap Cancelled BUN Creatinine Estimated GFR/1.73 m2 Glucose Calcium Magnesium 2.0 Total Bilirubin AST ALT Alkaline Phosphatase Troponin I < 0.05 Cancelled NT-Pro-B Natriuret Pep Total Protein Albumin Patient ABO/Rh Antibody Screen Crossmatch 11/15/18 09:14 WBC RBC Hgb Hct MCV MCH MCHC RDW Plt Count MPV Sodium Potassium Chloride Carbon Dioxide Anion Gap BUN Creatinine Estimated GFR/1.73 m2 Glucose Calcium Magnesium Total Bilirubin AST ALT Alkaline Phosphatase Troponin I 0.10 H* NT-Pro-B Natriuret Pep 2011 H Total Protein Albumin Patient ABO/Rh Antibody Screen Crossmatch EKG: HR 168, rapid Afib, nonspecific ST-T changes
[2018-11-15] MEDS: Normal Saline Flush 10 ML SYR IV (11:25)
--- NOTE | 2018-11-15 13:36 | DI.CT_ITS ---
SYMPTOM/DIAGNOSIS: SUSPECTED PE PE CHEST CT: CT angiography was performed with multi slice acquisition and multi planar and 3D reconstruction. There are no priors for comparison. There is no evidence of a pulmonary embolus. The thoracic aorta is of normal caliber. No aneurysmal dilatation or dissection. Heart size is within normal limits. No significant pericardial effusion is present. No evidence of right ventricular dysfunction is present. Coronary artery calcifications are seen. There is an aortic valve prosthesis. There are post surgical changes of an esophageal resection with gastric pull up. There are bilateral pleural effusions. There is a small right and a moderate left pleural effusion with subjacent atelectasis. No focal consolidating infiltrates are seen in the lungs. The tracheobronchial tree is unremarkable. Paraseptal emphysematous changes are seen in the lung apices. In the upper abdomen, there is retroperitoneal soft tissue which appears to encase the aorta and the renal arteries. There is a question of dilatation of the left renal collecting system which is incompletely imaged. There is subcutaneous edema seen in the abdominal wall. IMPRESSION: 1. No evidence of a pulmonary embolus, thoracic aortic dissection or aneurysm. 2. Bilateral pleural effusions with subjacent atelectasis. 3. Post surgical changes of a gastric pull up. 4. Retroperitoneal soft tissue at the level of the renal arteries suspicious for adenopathy. Retroperitoneal fibrosis or mass cannot be excluded. If there are prior films for comparison, they may be submitted for further evaluation. 5. Question mild dilatation of the left renal collecting system. There is incompletely imaged on this examination. Follow up is recommended.
[2018-11-15] MEDS: Omnipaque 350 MG/ML 100 ML BTL IJ (13:52)
--- NOTE | 2018-11-15 14:13 | DI.VRAD_ITS ---
EXAM: CT Angiography Chest With Contrast EXAM DATE/TIME: 11/15/2018 1:39 PM CLINICAL HISTORY: 67 years old, male; Other: Fluctuating BP, afib; Patient HX: HX of esophageal CA. Surgeries on stomach and esophagus; Additional info: Suspected pe TECHNIQUE: Imaging protocol: Axial computed tomographic angiography images of the chest with intravenous contrast using CT angiography protocol. Coronal and sagittal reformatted images were created and reviewed. 3D rendering: MIP reconstructed images were created and reviewed. Radiation optimization: All CT scans at this facility use at least one of these dose optimization techniques: automated exposure control; mA and/or kV adjustment per patient size (includes targeted exams where dose is matched to clinical indication); or iterative reconstruction. Contrast material: OMNIPAQUE 350; Contrast volume: 100 ml; Contrast route: IV; COMPARISON: No relevant prior studies available. FINDINGS: Pulmonary arteries: Good contrast opacification of the pulmonary arteries. No pulmonary embolism. Aorta: Aorta is upper normal in size measuring 4 cm diameter. No dissection. Lungs: Unremarkable. No consolidation. No masses. Pleural space: Minimal right and small left pleural effusions with adjacent atelectasis. Heart: Heart is normal in size. Aortic valve prosthesis. Coronary artery calcifications and no pericardial effusion. Mediastinum: Postsurgical change of esophageal resection with gastric pull-through which is located along the right side of the spine. Kidneys and ureters: Partially imaged mild left hydronephrosis with left perinephric fat stranding. Lymph nodes: Increased number of small right hilar and subcarinal lymph nodes. No enlarged thoracic lymph nodes. Soft tissue massing/lymphadenopathy surrounds the abdominal aorta and both renal arteries (axial series 4 image 120). Bones/joints: No acute bony abnormality. Sternotomy. Soft tissues: Subcutaneous soft tissue thickening and swelling along the left flank. IMPRESSION: 1. Negative for pulmonary embolism, aortic aneurysm or dissection. 2. Bilateral pleural effusions with adjacent atelectasis. 3. Partially imaged mild left hydronephrosis with left perinephric fat stranding. 4. Soft tissue massing/lymphadenopathy surrounds the abdominal aorta and both renal arteries. Dictated and Authenticated by: Medina Mireles MD. Ordering:JAKE Noble MD
[2018-11-15 15:25] LABS: HCT 23.5 % (40.0-50.0); HGB 7.9 g/dL (13.5-17.5)
[2018-11-15] MEDS: Atorvastatin 10 MG TAB PO (22:00)
[2018-11-15] MEDS: Docusate Sodium 100 MG CAP PO (22:01)
[2018-11-15] MEDS: traZODone 50 MG TAB PO (22:01)
[2018-11-16] VITALS (33 sets, daily range): BP systolic 105–133; BP diastolic 61–84; PULSE 66–82; RESP 13–27; TEMP 36–37.4; O2SAT 95–98
[2018-11-16 07:40] LABS: Abs Immature Grans 0.01 k/cumm (0.0-0.09); Absolute Basophil Count 0.01 k/cumm (0.0-0.2); Absolute Eosinophil Count 0.03 k/cumm (0.0-0.7); Absolute Lymphocyte Count 0.73 k/cumm (1.2-3.4); Absolute Monocyte Count 0.55 k/cumm (0.11-0.7); Basophils % 0.2; Eosinophils % 0.6; HCT 23.5 % (40.0-50.0); HGB 7.8 g/dL (13.5-17.5); Immature Grans % 0.2; Lymphocytes % 14.5; Mean Corp. HGB Concentration 33.2 g/dL (32.0-36.0); Mean Corpuscular Hemoglobin 29.3 pg (27.0-33.0); Mean Corpuscular Volume 88.3 fL (80-95); Mean Platelet Volume 9.2 fL (8.0-11.0); Monocytes % 10.9; Neutrophils % 73.6; Platelet Count 143 x1000/uL (130-400); RBC 2.66 m/cumm (4.50-6.00); RBC Distribution Width 14.8 % (11.8-14.1); White Blood Cell Count 5.03 k/cumm (4.4-10.8)
[2018-11-16 07:47] LABS: Anion Gap 8.4 mmol/L (3-11); BUN 14 mg/dL (7-18); CO2 27.6 mmol/L (21.0-32.0); CREATININE 0.72 mg/dL (0.70-1.30); Calcium 8.6 mg/dL (8.5-10.1); Chloride 107 mmol/L (98-107); Glucose 92 mg/dL (70-100); Magnesium 1.9 mg/dL (1.8-2.4); Potassium 3.7 mmol/L (3.5-5.1); Sodium 143 mmol/L (136-145)
--- NOTE | 2018-11-16 07:49 | PDOC.CMPRO ---
Care Management Progress Note S/O: Alan remains pleasant and engages easily. He continues to be followed by Dr. Marie and Dr. Restrepo; per reports anticipate discharge readiness as soon as tomorrow. Alan transferred to M/S level of care and telemetry was discontinued. CM continues to follow. A: Alan is a 67 year old gentleman admitted to [facility] on 11/13/18 with a bladder stone P: Alan will be discharge when medically ready, per MD-anticipate as soon as tomorrow as long as cardiac status remains stable and he has a successful voiding trial. Anticipate recommendation for [facility] coordination through PCP office. He will transport via private vehicle with his , [place].
--- NOTE | 2018-11-16 08:13 | W.PM.PROGNOT ---
Date of Service Date of service: 11/16/18 Time of Service: 08:14 Assessment and Plan (1) Atrial fibrillation with rapid ventricular response: Current visit: Yes Status: Resolved Now in NSR. Continue home BB. I feel this was likely triggered by anemia/dehydration. I would not add an antiarrhythmic at this time - but would definitely discharge the patient home with recommendations for an outpatient zio patch when he is ready. Not a candidate for anticoagulation at this time due to hematuria - can be discussed as outpatient. Ok to transfer out of ICU to [facility] with tele (I put transfer orders in). As he is euvolemic now, I would d/c IVF. (2) Hypotension (arterial): Current visit: Yes Status: Resolved BP at baseline. Trial off IVF. If BP worsens, I would consider transfusing 1 more unit of pRBC's. Ok to transfer out of ICU. No PE. (3) Acute anemia: Current visit: Yes Status: Acute s/p transfusion of total of 2 units on this admission, last one being yesterday. H/H stable. Recheck in am given hematuria. (4) Bladder stones: Current visit: No Status: Acute s/p evacuation - defer to primary team (5) BPH loc w urin obs/LUTS: Current visit: No Status: Chronic s/p vaporization of prostate, CBI d/c'ed. Defer to primary team. Subjective Interval history since last seen: The patient states he feels significantly better today - just in general, he said. His appetite is better, he feels stronger. Denies dizziness, chest pain, shortness of breath, nausea, vomiting. CBI remained on all night w/ mild hematuria; now it is off. He is monitoring his bladder spasms. Converted to NSR yesterday, and BP's improved after transfusion. Back pain relieved with tylenol. Exam Narrative Exam Narrative: General: Middle-aged male, pale but looks better, sitting up in a chair, A&Ox3 HEENT: atraumatic, normocephalic, EOMI, MMM Heart: RRR, I can hear 1 extra beat; no m/r/g Lungs: CTAB GI: abdomen is soft, nontender, nondistended : has a burris; petesron red urine Extremities: no e/c/c BLE's, trace pedal pulses B Objective Objective Clinical Data: Abnormal lab results 11/13/18 11/15/18 11/15/18 Range/Units 23:12 09:14 15:15 RBC (4.50-6.00) m/cumm Hgb 7.9 L (13.5-17.5) g/dL Hct 23.5 L (40.0-50.0) % RDW (11.8-14.1) % Absolute Lymphocytes (1.2-3.4) k/cumm Troponin I 0.10 H* (0.00-0.06) ng/mL NT-Pro-B Natriuret Pep 2011 H ( - 299) pg/mL Crossmatch See Detail 11/16/18 Range/Units 06:20 RBC 2.66 L (4.50-6.00) m/cumm Hgb 7.8 L (13.5-17.5) g/dL Hct 23.5 L (40.0-50.0) % RDW 14.8 H (11.8-14.1) % Absolute Lymphocytes 0.73 L (1.2-3.4) k/cumm Troponin I (0.00-0.06) ng/mL NT-Pro-B Natriuret Pep ( - 299) pg/mL Crossmatch Vital Signs Temperature 36 C L 11/16/18 04:14 Temperature Source Temporal Artery Scan 11/16/18 04:14 Pulse 74 11/16/18 04:14 Pulse Rhythm Irregular 11/15/18 03:50 Pulse 83 11/15/18 18:06 Respiratory Rate 17 11/16/18 04:14 Respiratory Effort Non-Labored 11/16/18 04:14 Respiratory Depth Normal 11/16/18 04:14 Respiratory Pattern Normal 11/16/18 04:14 Blood Pressure 107/67 11/16/18 04:14 Blood Pressure Mean 80 11/16/18 04:14 Blood Pressure Position Sitting 11/16/18 04:14 Pulse Oximetry 95 11/16/18 04:14 Respiratory End-tidal CO2 28 11/13/18 14:58 Oxygen Delivery Method Room Air 11/16/18 04:14 Oxygen Flow Rate 0 11/16/18 04:14 Pain Level 0 11/16/18 04:14 Comment 07/13/19 16:06 Intake & Output 11/15/18 11/15/18 11/16/18 11:59 23:59 11:59 Intake Total 3176.667 / 4226.667 1050.000 / 4226.667 Output Total 625 / 625 Balance 3176.667 / 3601.667 425.000 / 3601.667 Weight 83.1 kg Intake: IV 2476.667 / 3101.667 625.000 / 3101.667 Oral 700 / 800 100 / 800 Blood Product 325 / 325 Rbc Leuko Reduced Unit 325 / 325 [id number] Output: Urine 625 / 625 Other: Urine Color Pale Pale Yellow Urine Appearance Clear Cloudy Hematuria Comment Bladder irrigation clamped/DCd by MD Marie; to be used PRN CBI running in very slowly to maintain patency and clarity of urine. Urine at times has faint pink tinge, but mainly clear almost colorless. Pt comfortable with tylenol. CBI running in very slowly to maintain patency and clarity of urine. Urine at times has faint pink tinge, but mainly clear almost colorless. Pt comfortable with tylenol. Laboratory Results WBC 5.03 k/cumm (4.4-10.8) 11/16/18 06:20 RBC 2.66 m/cumm (4.50-6.00) L 11/16/18 06:20 Hgb 7.8 g/dL (13.5-17.5) L 11/16/18 06:20 Hct 23.5 % (40.0-50.0) L 11/16/18 06:20 MCV 88.3 fL (80-95) 11/16/18 06:20 MCH 29.3 pg (27.0-33.0) 11/16/18 06:20 MCHC 33.2 g/dL (32.0-36.0) 11/16/18 06:20 RDW 14.8 % (11.8-14.1) H 11/16/18 06:20 Plt Count 143 x1000/uL (130-400) 11/16/18 06:20 MPV 9.2 fL (8.0-11.0) 11/16/18 06:20 Immature Gran % 0.2 11/16/18 06:20 73.6 11/16/18 06:20 14.5 11/16/18 06:20 10.9 11/16/18 06:20 0.6 11/16/18 06:20 0.2 11/16/18 06:20 Absolute Neutrophils 3.70 k/cumm (1.2-6.7) 11/16/18 06:20 Absolute Lymphocytes 0.73 k/cumm (1.2-3.4) L 11/16/18 06:20 Absolute Monocytes 0.55 k/cumm (0.11-0.7) 11/16/18 06:20 Absolute Eosinophils 0.03 k/cumm (0.0-0.7) 11/16/18 06:20 Absolute Basophils 0.01 k/cumm (0.0-0.2) 11/16/18 06:20 Sodium 143 mmol/L (136-145) 11/16/18 06:20 Potassium 3.7 mmol/L (3.5-5.1) 11/16/18 06:20 Chloride 107 mmol/L (98-107) 11/16/18 06:20 Carbon Dioxide 27.6 mmol/L (21.0-32.0) 11/16/18 06:20 8.4 mmol/L (3-11) 11/16/18 06:20 BUN 14 mg/dL (7-18) D 11/16/18 06:20 0.72 mg/dL (0.70-1.30) 11/16/18 06:20 >= 60.00 (mL/min/1.73m2) 11/16/18 06:20 Glucose 92 mg/dL (70-100) 11/16/18 06:20 Calcium 8.6 mg/dL (8.5-10.1) 11/16/18 06:20 Magnesium 1.9 mg/dL (1.8-2.4) 11/16/18 06:20 0.5 mg/dL (0.2-1.0) 11/15/18 04:20 AST 10 U/L (15-37) L 11/15/18 04:20 ALT 22 U/L (12-78) 11/15/18 04:20 104 U/L (46-116) 11/15/18 04:20 0.10 ng/mL (0.00-0.06) H* 11/15/18 09:14 NT-Pro-B Natriuret Pep 2011 pg/mL (-299) H 11/15/18 09:14 5.7 g/dL (6.4-8.2) L 11/15/18 04:20 2.7 g/dL (3.4-5.0) L 11/15/18 04:20 Patient ABO/Rh O Negative 11/13/18 23:12 Antibody Screen Negative 11/13/18 23:12 Crossmatch See Detail 11/13/18 23:12
[2018-11-16] MEDS: Finasteride 5 MG TAB PO (08:34)
[2018-11-16] MEDS: Acetaminophen 325 MG TAB 650 MG PO ×2 (08:34→16:23)
[2018-11-16] MEDS: Milk of Magnesia 30 ML CUP PO (08:34)
[2018-11-16] MEDS: Sulfameth/Trimeth DS TAB 1 TAB PO ×2 (08:34→20:09)
[2018-11-16] MEDS: Metoprolol CR 25 MG TABCR PO (08:34)
[2018-11-16] MEDS: Lactated Ringers 1,000 ML 100 ML IV (09:01)
--- NOTE | 2018-11-16 10:14 | PGE_ITS ---
Date of Service Date of service: 11/16/18 Time of Service: 10:14 Assessment and Plan (1) BPH loc w urin obs/LUTS: Current visit: No Status: Chronic I appreciate Dr Restrepo's efforts. I expect to remove this gentleman's burris catheter in the morning (so that I am available in the office to replace the catheter if need be). As long as his cardiac status remains stable and he is able to void, he may be able to go home tomorrow. (2) Bladder stones: Current visit: No Status: Acute Subjective Interval history since last seen: POD#3 His atrial fibrillation has converted back to sinus rhythm. His BP is back to his baseline. He has no chest pain. He has been complaining of abdominal and back pain for the past 6 months or so. 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 He had a CT chest which ruled out a PE yeaterday and did show some of the soft tissue mass/left hydronephrosis. I will be able to compare these findings with his [facility] films. His next scheduled scan is in December. His urine is cloudy but no sizable clots. he does have bladder spasms which are expected as long as the catheter (which has a 30 cc balloon) is in place.. Exam Narrative Exam Narrative: He looks back to his baseline His urine is cloudy without clots Objective Objective Clinical Data: Abnormal lab results 11/13/18 11/15/18 11/15/18 Range/Units 23:12 09:14 15:15 RBC (4.50-6.00) m/cumm Hgb 7.9 L (13.5-17.5) g/dL Hct 23.5 L (40.0-50.0) % RDW (11.8-14.1) % Absolute Lymphocytes (1.2-3.4) k/cumm Troponin I 0.10 H* (0.00-0.06) ng/mL NT-Pro-B Natriuret Pep 2011 H ( - 299) pg/mL Crossmatch See Detail 11/16/18 Range/Units 06:20 RBC 2.66 L (4.50-6.00) m/cumm Hgb 7.8 L (13.5-17.5) g/dL Hct 23.5 L (40.0-50.0) % RDW 14.8 H (11.8-14.1) % Absolute Lymphocytes 0.73 L (1.2-3.4) k/cumm Troponin I (0.00-0.06) ng/mL NT-Pro-B Natriuret Pep ( - 299) pg/mL Crossmatch Vital Signs Temperature 36 C L 11/16/18 04:14 Temperature Source Temporal Artery Scan 11/16/18 04:14 Pulse 73 11/16/18 09:45 Pulse Rhythm Irregular 11/15/18 03:50 Pulse 75 11/16/18 09:45 Respiratory Rate 22 11/16/18 09:45 Respiratory Effort Non-Labored 11/16/18 04:14 Respiratory Depth Normal 11/16/18 04:14 Respiratory Pattern Normal 11/16/18 04:14 Blood Pressure 118/78 11/16/18 09:45 Blood Pressure Mean 87 11/16/18 09:45 Blood Pressure Position Sitting 11/16/18 04:14 Pulse Oximetry 98 11/16/18 07:01 Respiratory End-tidal CO2 28 11/13/18 14:58 Oxygen Delivery Method Room Air 11/16/18 04:14 Oxygen Flow Rate 0 11/16/18 04:14 Pain Level 4 11/16/18 08:34 Comment 11/15/18 16:06 Intake & Output 11/15/18 11/15/18 11/16/18 11:59 23:59 11:59 Intake Total 3176.667 / 4226.667 1050.000 / 4226.667 1000 / 1000 Output Total 625 / 625 Balance 3176.667 / 3601.667 425.000 / 3601.667 1000 / 1000 Weight 83.1 kg Intake: IV 2476.667 / 3101.667 625.000 / 3101.667 1000 / 1000 Oral 700 / 800 100 / 800 Blood Product 325 / 325 Rbc Leuko Reduced Unit 325 / 325 [id number] Output: Urine 625 / 625 Other: Urine Color Pale Pale Yellow Urine Appearance Clear Cloudy Hematuria Comment Bladder irrigation clamped/DCd by MD Marie; to be used PRN CBI running in very slowly to maintain patency and clarity of urine. Urine at times has faint pink tinge, but mainly clear almost colorless. Pt comfortable with tylenol. CBI running in very slowly to maintain patency and clarity of urine. Urine at times has faint pink tinge, but mainly clear almost colorless. Pt comfortable with tylenol. Laboratory Results WBC 5.03 k/cumm (4.4-10.8) 11/16/18 06:20 RBC 2.66 m/cumm (4.50-6.00) L 11/16/18 06:20 Hgb 7.8 g/dL (13.5-17.5) L 11/16/18 06:20 Hct 23.5 % (40.0-50.0) L 11/16/18 06:20 MCV 88.3 fL (80-95) 11/16/18 06:20 MCH 29.3 pg (27.0-33.0) 11/16/18 06:20 MCHC 33.2 g/dL (32.0-36.0) 11/16/18 06:20 RDW 14.8 % (11.8-14.1) H 11/16/18 06:20 Plt Count 143 x1000/uL (130-400) 11/16/18 06:20 MPV 9.2 fL (8.0-11.0) 11/16/18 06:20 Immature Gran % 0.2 11/16/18 06:20 73.6 11/16/18 06:20 14.5 11/16/18 06:20 10.9 11/16/18 06:20 0.6 11/16/18 06:20 0.2 11/16/18 06:20 Absolute Neutrophils 3.70 k/cumm (1.2-6.7) 11/16/18 06:20 Absolute Lymphocytes 0.73 k/cumm (1.2-3.4) L 11/16/18 06:20 Absolute Monocytes 0.55 k/cumm (0.11-0.7) 11/16/18 06:20 Absolute Eosinophils 0.03 k/cumm (0.0-0.7) 11/16/18 06:20 Absolute Basophils 0.01 k/cumm (0.0-0.2) 11/16/18 06:20 Sodium 143 mmol/L (136-145) 11/16/18 06:20 Potassium 3.7 mmol/L (3.5-5.1) 11/16/18 06:20 Chloride 107 mmol/L (98-107) 11/16/18 06:20 Carbon Dioxide 27.6 mmol/L (21.0-32.0) 11/16/18 06:20 8.4 mmol/L (3-11) 11/16/18 06:20 BUN 14 mg/dL (7-18) D 11/16/18 06:20 0.72 mg/dL (0.70-1.30) 11/16/18 06:20 >= 60.00 (mL/min/1.73m2) 11/16/18 06:20 Glucose 92 mg/dL (70-100) 11/16/18 06:20 Calcium 8.6 mg/dL (8.5-10.1) 11/16/18 06:20 Magnesium 1.9 mg/dL (1.8-2.4) 11/16/18 06:20 0.5 mg/dL (0.2-1.0) 11/15/18 04:20 AST 10 U/L (15-37) L 11/15/18 04:20 ALT 22 U/L (12-78) 11/15/18 04:20 104 U/L (46-116) 11/15/18 04:20 0.10 ng/mL (0.00-0.06) H* 11/15/18 09:14 NT-Pro-B Natriuret Pep 2011 pg/mL (-299) H 11/15/18 09:14 5.7 g/dL (6.4-8.2) L 11/15/18 04:20 2.7 g/dL (3.4-5.0) L 11/15/18 04:20 Patient ABO/Rh O Negative 11/13/18 23:12 Antibody Screen Negative 11/13/18 23:12 Crossmatch See Detail 11/13/18 23:12
[2018-11-16 12:48] LABS: Troponin I 0.05 ng/mL (0.00-0.06)
[2018-11-16] MEDS: Tamsulosin 0.4 MG CAPCR PO (18:37)
[2018-11-16] MEDS: traMADol 50 MG TAB PO (20:58)
[2018-11-16] MEDS: Milk of Magnesia 30 ML CUP 10 ML PO (21:04)
[2018-11-16] MEDS: traZODone 50 MG TAB PO (21:05)
[2018-11-16] MEDS: Atorvastatin 10 MG TAB PO (21:05)
[2018-11-16] MEDS: Docusate Sodium 100 MG CAP PO (21:05)
[2018-11-16] MEDS: Normal Saline Flush 10 ML SYR IV (21:05)
[2018-11-17] VITALS (49 sets, daily range): BP systolic 87–134; BP diastolic 52–86; PULSE 61–91; RESP 12–27; TEMP 36.9–37.6; O2SAT 93–99
[2018-11-17] MEDS: Acetaminophen 325 MG TAB 650 MG PO ×5 (01:32→22:02)
[2018-11-17] MEDS: Normal Saline Flush 10 ML SYR IV ×2 (05:13→11:32)
[2018-11-17 06:49] LABS: Abs Immature Grans 0.01 k/cumm (0.0-0.09); Absolute Basophil Count 0.01 k/cumm (0.0-0.2); Absolute Eosinophil Count 0.03 k/cumm (0.0-0.7); Absolute Lymphocyte Count 0.55 k/cumm (1.2-3.4); Absolute Monocyte Count 0.39 k/cumm (0.11-0.7); Basophils % 0.3; Eosinophils % 0.8; HCT 21.8 % (40.0-50.0); HGB 7.3 g/dL (13.5-17.5); Immature Grans % 0.3; Lymphocytes % 14.2; Mean Corp. HGB Concentration 33.5 g/dL (32.0-36.0); Mean Corpuscular Hemoglobin 29.7 pg (27.0-33.0); Mean Corpuscular Volume 88.6 fL (80-95); Mean Platelet Volume 9.3 fL (8.0-11.0); Monocytes % 10.1; Neutrophils % 74.3; Platelet Count 145 x1000/uL (130-400); RBC 2.46 m/cumm (4.50-6.00); RBC Distribution Width 14.9 % (11.8-14.1); White Blood Cell Count 3.88 k/cumm (4.4-10.8)
--- NOTE | 2018-11-17 06:58 | W.PM.PROGNOT ---
Date of Service Date of service: 11/17/18 Time of Service: 06:58 Assessment and Plan (1) BPH loc w urin obs/LUTS: Current visit: No Status: Chronic I have will remove his Morales catheter this morning. We are still awaiting his morning labs As long as he is able to void, we may be able to let him go home later today since his atrial fibrillation and hypotension seem related to acute blood loss anemia, we can always consider another transfusion before discharge. (2) Bladder stones: Current visit: No Status: Acute Subjective Interval history since last seen: Chief complaint:POD #4 He has been fairly comfortable. When his catheter has been irrigated, only small clots have been obtained. He has not developed retention. He has no chest pain or palpitations. His blood pressure and heart rate have been stable. Exam Narrative Exam Narrative: His heart rate and blood pressure remain at his baseline. His urine is light pink this morning He is awake and alert. His surgical pathology is not yet available I was able to review his images and records from [facility]. The retroperitoneal mass had been identified previously. He had a percutaneous biopsy done by interventional radiology in September of this year. The pathology showed no sign of metastatic disease, but a repeat scan is planned in the next month or 2. Objective Objective Clinical Data: Abnormal lab results 11/16/18 Range/Units 06:20 RBC 2.66 L (4.50-6.00) m/cumm Hgb 7.8 L (13.5-17.5) g/dL Hct 23.5 L (40.0-50.0) % RDW 14.8 H (11.8-14.1) % Absolute Lymphocytes 0.73 L (1.2-3.4) k/cumm Vital Signs Temperature 37.2 C 11/17/18 03:00 Temperature Source Temporal Artery Scan 11/17/18 03:00 Pulse 77 11/17/18 04:02 Pulse Rhythm Irregular 11/15/18 03:50 Pulse 87 11/17/18 04:02 Respiratory Rate 18 11/17/18 04:02 Respiratory Effort 11/16/18 23:50 Respiratory Depth Normal 11/16/18 23:50 Respiratory Pattern Normal 11/16/18 23:50 Blood Pressure 98/63 L 11/17/18 04:02 Blood Pressure Mean 71 11/17/18 04:02 Blood Pressure Position Sitting 11/16/18 16:05 Pulse Oximetry 95 11/17/18 02:54 Respiratory End-tidal CO2 28 11/13/18 14:58 Oxygen Delivery Method Room Air 11/16/18 20:00 Oxygen Flow Rate 0 11/16/18 20:00 Pain Level 3 11/17/18 02:32 Comment 11/15/18 16:06 Intake & Output 11/16/18 11/16/18 11/17/18 11:59 23:59 11:59 Intake Total 1651.667 / 1861.667 210 / 1861.667 440 / 440 Output Total 800 / 800 800 / 800 Balance 1651.667 / 1061.667 -590 / 1061.667 -360 / -360 Weight 80.7 kg Intake: IV 1291.667 / 1291.667 0 / 1291.667 Oral 360 / 570 210 / 570 440 / 440 Output: Urine 800 / 800 800 / 800 Other: Urine Color Pale [place] Dark Red [place] Urine Appearance Clear Hematuria Hematuria Clots Comment Bladder irrigation clamped. No clots noted. Urine is draining. Checking for residuals to rule out presence of a clot/obstruction within Morales tube. No residuals present. Laboratory Results WBC 5.03 k/cumm (4.4-10.8) 11/16/18 06:20 RBC 2.66 m/cumm (4.50-6.00) L 11/16/18 06:20 Hgb 7.8 g/dL (13.5-17.5) L 11/16/18 06:20 Hct 23.5 % (40.0-50.0) L 11/16/18 06:20 MCV 88.3 fL (80-95) 11/16/18 06:20 MCH 29.3 pg (27.0-33.0) 11/16/18 06:20 MCHC 33.2 g/dL (32.0-36.0) 11/16/18 06:20 RDW 14.8 % (11.8-14.1) H 11/16/18 06:20 Plt Count 143 x1000/uL (130-400) 11/16/18 06:20 MPV 9.2 fL (8.0-11.0) 11/16/18 06:20 Immature Gran % 0.2 11/16/18 06:20 73.6 11/16/18 06:20 14.5 11/16/18 06:20 10.9 11/16/18 06:20 0.6 11/16/18 06:20 0.2 11/16/18 06:20 Absolute Neutrophils 3.70 k/cumm (1.2-6.7) 11/16/18 06:20 Absolute Lymphocytes 0.73 k/cumm (1.2-3.4) L 11/16/18 06:20 Absolute Monocytes 0.55 k/cumm (0.11-0.7) 11/16/18 06:20 Absolute Eosinophils 0.03 k/cumm (0.0-0.7) 11/16/18 06:20 Absolute Basophils 0.01 k/cumm (0.0-0.2) 11/16/18 06:20 Sodium 143 mmol/L (136-145) 11/16/18 06:20 Potassium 3.7 mmol/L (3.5-5.1) 11/16/18 06:20 Chloride 107 mmol/L (98-107) 11/16/18 06:20 Carbon Dioxide 27.6 mmol/L (21.0-32.0) 11/16/18 06:20 8.4 mmol/L (3-11) 11/16/18 06:20 BUN 14 mg/dL (7-18) D 11/16/18 06:20 0.72 mg/dL (0.70-1.30) 11/16/18 06:20 >= 60.00 (mL/min/1.73m2) 11/16/18 06:20 Glucose 92 mg/dL (70-100) 11/16/18 06:20 Calcium 8.6 mg/dL (8.5-10.1) 11/16/18 06:20 Magnesium 1.9 mg/dL (1.8-2.4) 11/16/18 06:20 0.5 mg/dL (0.2-1.0) 11/15/18 04:20 AST 10 U/L (15-37) L 11/15/18 04:20 ALT 22 U/L (12-78) 07/13/19 04:20 104 U/L (46-116) 11/15/18 04:20 0.05 ng/mL (0.00-0.06) 11/16/18 06:20 NT-Pro-B Natriuret Pep 2011 pg/mL (-299) H 11/15/18 09:14 5.7 g/dL (6.4-8.2) L 11/15/18 04:20 2.7 g/dL (3.4-5.0) L 11/15/18 04:20 Patient ABO/Rh O Negative 11/13/18 23:12 Antibody Screen Negative 11/13/18 23:12 Crossmatch See Detail 11/13/18 23:12
[2018-11-17 07:00] LABS: Absolute Neutrophil Count 2.88 k/cumm (1.2-6.7)
[2018-11-17 07:02] LABS: Anion Gap 8.9 mmol/L (3-11); BUN 12 mg/dL (7-18); CO2 26.1 mmol/L (21.0-32.0); CREATININE 0.76 mg/dL (0.70-1.30); Calcium 7.8 mg/dL (8.5-10.1); Chloride 106 mmol/L (98-107); Glucose 96 mg/dL (70-100); Magnesium 1.7 mg/dL (1.8-2.4); Potassium 3.8 mmol/L (3.5-5.1); Sodium 141 mmol/L (136-145)
--- NOTE | 2018-11-17 08:17 | W.PM.PROGNOT ---
Date of Service Date of service: 11/17/18 Time of Service: 08:17 Assessment and Plan (1) Atrial fibrillation with rapid ventricular response: Current visit: No Status: Resolved Now in NSR. Both BP and HR are tolerating home dose of metoprolol - would not change this at this time. I ordered an echo (last one was >6 months ago) to be safe. No anticoagulation in setting of acute hematuria. To be transfused 1 more unit of blood today. This recurrence of Afib was likely triggered by anemia/dehydration. There is no evidence of infection at this time. Recommendation for an outpatient zio patch is being passed on to PCP's office by case management. Ok to discharge home today if echo ok and after receiving blood. (2) Hypotension (arterial): Current visit: No Status: Resolved BP at baseline and tolerated withdrawal of IVF. Likely due to rapid Afib as well as anemia. (3) Acute anemia: Current visit: No Status: Acute Due to blood loss of hematuria. For transfusion of 3rd unit of pRBC's today. Will need outpatient labs - will give scripts. (4) Bladder stones: Current visit: No Status: Acute s/p evacuation - defer to primary team (5) BPH loc w urin obs/LUTS: Current visit: No Status: Chronic s/p vaporization of prostate, CBI d/c'ed. Defer to primary team. Subjective Interval history since last seen: Denies dizziness, chest pain, shortness of breath, nausea. C/o chronic stomach ache, but then comments that he is not having it currently and hasn't had it really since being admitted to the hospital this time. Etienne out this am. Still hematuria, one tiny clot seen. No fever. Not requiring O2. Remains in NSR, intermittent PVC's/bigeminy noted. BP 112/83 this am. He is agreeable to receiving 1 more unit of blood prior to discharge with orders for bloodwork as outpatient. We talked about follow up with PCP. Exam Narrative Exam Narrative: General: Middle-aged male, sitting up in a chair, pale HEENT: atraumatic, normocephalic, EOMI, MMM Heart: RRR, very quiet FREDDY heard Lungs: CTAB GI: abdomen is soft, nontender, nondistended Extremities: no e/c/c BLE's, trace pedal pulses B Objective Objective Clinical Data: Abnormal lab results 11/17/18 11/17/18 11/17/18 Range/Units 06:10 06:10 07:45 WBC 3.88 L (4.4-10.8) k/cumm RBC 2.46 L (4.50-6.00) m/cumm Hgb 7.3 L (13.5-17.5) g/dL Hct 21.8 L (40.0-50.0) % RDW 14.9 H (11.8-14.1) % Absolute Lymphocytes 0.55 L (1.2-3.4) k/cumm Calcium 7.8 L (8.5-10.1) mg/dL Magnesium 1.7 L (1.8-2.4) mg/dL Crossmatch See Detail Vital Signs Temperature 37.2 C 11/17/18 03:00 Temperature Source Temporal Artery Scan 11/17/18 03:00 Pulse 91 H 11/17/18 07:13 Pulse Rhythm Irregular 11/15/18 03:50 Pulse 87 11/17/18 04:02 Respiratory Rate 18 11/17/18 04:02 Respiratory Effort 11/16/18 23:50 Respiratory Depth Normal 11/16/18 23:50 Respiratory Pattern Normal 11/16/18 23:50 Blood Pressure 98/63 L 11/17/18 04:02 Blood Pressure Mean 71 11/17/18 04:02 Blood Pressure Position Sitting 11/16/18 16:05 Pulse Oximetry 95 11/17/18 02:54 Respiratory End-tidal CO2 28 11/13/18 14:58 Oxygen Delivery Method Room Air 11/16/18 20:00 Oxygen Flow Rate 0 11/16/18 20:00 Pain Level 3 11/17/18 02:32 Comment 11/15/18 16:06 Intake & Output 11/16/18 11/16/18 11/17/18 11:59 23:59 11:59 Intake Total 1651.667 / 1861.667 210 / 1861.667 440 / 440 Output Total 800 / 800 900 / 900 Balance 1651.667 / 1061.667 -590 / 1061.667 -460 / -460 Weight 80.7 kg Intake: IV 1291.667 / 1291.667 0 / 1291.667 Oral 360 / 570 210 / 570 440 / 440 Output: Urine 800 / 800 900 / 900 Other: Urine Color Pale [place] Dark Red [place] Urine Appearance Clear Hematuria Cloudy Clots Comment Bladder irrigation clamped. No clots noted. Urine is draining. Cloudy bloody urine, no visable clots. Laboratory Results WBC 3.88 k/cumm (4.4-10.8) L 11/17/18 06:10 RBC 2.46 m/cumm (4.50-6.00) L 11/17/18 06:10 Hgb 7.3 g/dL (13.5-17.5) L 11/17/18 06:10 Hct 21.8 % (40.0-50.0) L 11/17/18 06:10 MCV 88.6 fL (80-95) 11/17/18 06:10 MCH 29.7 pg (27.0-33.0) 11/17/18 06:10 MCHC 33.5 g/dL (32.0-36.0) 11/17/18 06:10 RDW 14.9 % (11.8-14.1) H 11/17/18 06:10 Plt Count 145 x1000/uL (130-400) 11/17/18 06:10 MPV 9.3 fL (8.0-11.0) 11/17/18 06:10 Immature Gran % 0.3 11/17/18 06:10 74.3 11/17/18 06:10 14.2 11/17/18 06:10 10.1 11/17/18 06:10 0.8 11/17/18 06:10 0.3 11/17/18 06:10 Absolute Neutrophils 2.88 k/cumm (1.2-6.7) 11/17/18 06:10 Absolute Lymphocytes 0.55 k/cumm (1.2-3.4) L 11/17/18 06:10 Absolute Monocytes 0.39 k/cumm (0.11-0.7) 11/17/18 06:10 Absolute Eosinophils 0.03 k/cumm (0.0-0.7) 11/17/18 06:10 Absolute Basophils 0.01 k/cumm (0.0-0.2) 11/17/18 06:10 Sodium 141 mmol/L (136-145) 11/17/18 06:10 Potassium 3.8 mmol/L (3.5-5.1) 11/17/18 06:10 Chloride 106 mmol/L (98-107) 11/17/18 06:10 Carbon Dioxide 26.1 mmol/L (21.0-32.0) 11/17/18 06:10 8.9 mmol/L (3-11) 11/17/18 06:10 BUN 12 mg/dL (7-18) 11/17/18 06:10 0.76 mg/dL (0.70-1.30) 11/17/18 06:10 >= 60.00 (mL/min/1.73m2) 11/17/18 06:10 Glucose 96 mg/dL (70-100) 11/17/18 06:10 Calcium 7.8 mg/dL (8.5-10.1) L 11/17/18 06:10 Magnesium 1.7 mg/dL (1.8-2.4) L 11/17/18 06:10 0.5 mg/dL (0.2-1.0) 11/15/18 04:20 AST 10 U/L (15-37) L 11/15/18 04:20 ALT 22 U/L (12-78) 11/15/18 04:20 104 U/L (46-116) 11/15/18 04:20 0.05 ng/mL (0.00-0.06) 11/16/18 06:20 NT-Pro-B Natriuret Pep 2011 pg/mL (-299) H 11/15/18 09:14 5.7 g/dL (6.4-8.2) L 11/15/18 04:20 2.7 g/dL (3.4-5.0) L 11/15/18 04:20 Patient ABO/Rh O Negative 11/13/18 23:12 Antibody Screen Negative 11/13/18 23:12 Crossmatch See Detail 11/17/18 07:45
[2018-11-17] MEDS: Sulfameth/Trimeth DS TAB 1 TAB PO ×2 (08:51→20:15)
[2018-11-17] MEDS: Finasteride 5 MG TAB PO (08:51)
[2018-11-17] MEDS: Metoprolol CR 25 MG TABCR PO (08:51)
[2018-11-17] MEDS: MAGNESIUM SULFATE 2 GM/50 ML BAG IVPB (08:51)
--- NOTE | 2018-11-17 11:10 | PDOC.CMPRO ---
- If Service Date Differs Date of service: 11/17/18 Time of Service: 11:10 Care Management Progress Note S/O: CM met with lAan at the bedside he is about to have a PRC transfusion. He states he is feeling better he is not sure if he will be discharged home today. A:Alan is a 67 year old male admitted with bladder stone, who was transferred to the ICU for rapid afib, P:Alan, will be discharged home when medically ready and follow up with primary care and . With recommendations that his primary care follow up with his need for a possible Zio patch once he returns home. CM will continue to provide support discharged planning.
[2018-11-17] MEDS: diphenhydrAMINE 25 MG CAP PO (11:16)
[2018-11-17 12:14] LABS: Bilirubin Negative (Negative); Blood Large (Negative); Clarity Cloudy (Clear); Glucose Negative (Negative); Ketones Negative (Negative); Leukocyte Esterase Trace (Negative); Nitrite Negative (Negative); Specific Gravity 1.025 (1.005-1.025); pH 7.5 (5-8)
[2018-11-17 12:18] LABS: RBC >50 (0-2)
[2018-11-17 12:19] LABS: C & S Indicated? Yes
--- NOTE | 2018-11-17 12:30 | MERGE_ITS ---
*[facility]* *[facility]* [address] [facility] [place] [address] Date of study: 11/17/2018 Transthoracic Echocardiography M-mode, complete 2D, complete spectral Doppler, and color Doppler *STUDY CONCLUSIONS* Summary: 1. Left ventricle: The cavity size was normal. Systolic function was hyperdynamic. The estimated ejection fraction was 65-70%. Diastolic parameters were normal for age. There was no evidence of elevated ventricular filling pressure by Doppler parameters. 2. Aortic valve: There was mild stenosis. Peak velocity (S): 2.3m/sec. Mean gradient (S): 12.2mm Hg. VTI ratio of LVOT to aortic valve: 0.57. Valve area (VTI): 1.3cm^2. 3. Mitral valve: Mildly calcified annulus. 4. Left atrium: The atrium was mildly dilated. 5. Right ventricle: The cavity size was normal. Wall thickness was normal. Systolic function was normal. 6. Right atrium: The atrium was mildly dilated. 7. Atrial septum: No defect or patent foramen ovale was identified. 8. Pulmonary arteries: Pulmonary systolic pressure was >= 35mm Hg. 9. Inferior vena cava: Poorly visualized. *PATIENT PRESENTATION* Height: 188cm (74in ) S/D Pressure: 122 / 85 Weight: 80.3kg (176.6lb ) BSA: 2.05m^2 Test start time: 12:50 PM. Test stop time: 01:40 PM. PERFORMING Unknown Md Maulik CARPENTER CONSULTING Aide Restrepo ORDERING Aide Restrepo REFERRING Aide Restrepo *PROCEDURE DATA* Procedure information: The patient was identified by two identifiers. This study was interpreted by [facility]. Pertinent images and digital data are archived for permanent storage and are available for subsequent review. No prior study was available for comparison. Study status: Routine. Transthoracic echocardiography. M-mode, complete 2D, complete spectral Doppler, and color Doppler. A Transthoracic Echocardiogram was performed. Scanning was performed from the parasternal, apical, subcostal, and suprasternal notch acoustic windows. Images were obtained using an [id number] cardiac ultrasound machine. Image quality was adequate. Study completion: The patient tolerated the procedure well. History: PMH: Afib. *CARDIAC ANATOMY* Left ventricle: The cavity size was normal. Systolic function was hyperdynamic. The estimated ejection fraction was 65-70%. Diastolic parameters were normal for age. There was no evidence of elevated ventricular filling pressure by Doppler parameters. Aortic valve: Mildly thickened, mildly calcified leaflets. Doppler: There was mild stenosis. There was no regurgitation. VTI ratio of LVOT to aortic valve: 0.57. Valve area (VTI): 1.3cm^2. Indexed valve area (VTI): 0.6cm^2/m^2. Peak velocity ratio of LVOT to aortic valve: 0.55. Valve area (Vmax): 1.3cm^2. Indexed valve area (Vmax): 0.6cm^2/m^2. Mean velocity ratio of LVOT to aortic valve: 0.59. Valve area (Vmean): 1.4cm^2. Indexed valve area (Vmean): 0.7cm^2/m^2. Mean gradient (S): 12.2mm Hg. Peak gradient (S): 21mm Hg. Aorta: The aorta was poorly visualized. Mitral valve: Mildly calcified annulus. Doppler: There was no evidence for stenosis. There was no significant regurgitation. Valve area by pressure half-time: 2.6cm^2. Indexed valve area by pressure half-time: 1.3cm^2/m^2. Left atrium: The atrium was mildly dilated. Atrial septum: No defect or patent foramen ovale was identified. Right ventricle: The cavity size was normal. Wall thickness was normal. Systolic function was normal. Pulmonic valve: Doppler: There was no evidence for stenosis. There was trivial regurgitation. Tricuspid valve: Doppler: There was trivial regurgitation. Pulmonary artery: Poorly visualized. Pulmonary systolic pressure was >= 35mm Hg. Right atrium: The atrium was mildly dilated. Pericardium: There was no pericardial effusion. Systemic veins: Inferior vena cava: Poorly visualized. Measurements Left ventricle Value Reference LV end-diastolic volume, 1-p A2C 85 ml LV ejection fraction, 1-p A2C 64 % LV end-diastolic volume, 1-p A4C 126 ml LV ejection fraction, 1-p A4C 62 % LV e', lateral 0.083 m/sec LV E/e', lateral 8 LV e', medial 0.081 m/sec LV E/e', medial 9 LV e', average 0.082 m/sec LV E/e', average 9 LVOT Value Reference LVOT ID, A-P 1.7 cm LVOT area 2.3 cm^2 LVOT peak velocity, S 1.26 m/sec LVOT mean velocity, S 0.98 m/sec LVOT VTI, S 26.9 cm LVOT peak gradient, S 6.3 mm Hg LVOT mean gradient, S 4.2 mm Hg Stroke volume (SV), LVOT DP 62 ml Stroke index (SV/bsa), LVOT DP 30 ml/m^2 Aortic valve Value Reference Aortic valve peak velocity, S 2.3 m/sec Aortic valve mean velocity, S 1.7 m/sec Aortic valve VTI, S 47.0 cm Aortic mean gradient, S 12.2 mm Hg Aortic peak gradient, S 21 mm Hg VTI ratio, LVOT/AV 0.57 Aortic valve area, VTI 1.3 cm^2 Velocity ratio, peak, LVOT/AV 0.55 Aortic valve area, peak velocity 1.3 cm^2 Velocity ratio, mean, LVOT/AV 0.59 Aortic valve area, mean velocity 1.4 cm^2 Aortic valve area/bsa, mean velocity 0.7 cm^2/m^2 Left atrium Value Reference LA volume/bsa, ES, 1-p A4C 29 ml/m^2 LA volume, ES, 2-p 82 ml LA volume/bsa, ES, 2-p 40 ml/m^2 Mitral valve Value Reference Mitral E-wave peak velocity 0.7 m/sec Mitral A-wave peak velocity 0.84 m/sec Mitral deceleration time (H) 289 ms 150 - 230 Mitral pressure half-time 84 ms Mitral E/A ratio, peak 0.84 Mitral valve area, PHT, DP 2.6 cm^2 Tricuspid valve Value Reference Tricuspid regurg peak velocity 2.7 m/sec Tricuspid peak RV-RA gradient 28.3 mm Hg Right atrium Value Reference RA area, ES, A4C (H) 20.7 cm^2 8.3 - 19.5 Legend: (L) and (H) gian values outside specified reference range. I have personally reviewed the images and have reviewed and edited the reported findings. Electronically signed by Alan Willingham MD 11/17/2018 16:52
--- NOTE | 2018-11-17 14:18 | CHAPLAIN ---
I visited with Alan and his Sri. They talked about the home they built in [place], raising two sons, and Alan's health issues. They both worked hard our whole lives and retired a few years ago. Sri said they have very much enjoyed being retired, getting up each day and deciding what to do. That has changed some since Alan has experience health concerns. 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
--- NOTE | 2018-11-17 16:19 | PHARADMIT ---
Admission Pharmacy Clinical Review bladder stone Code Status Full Code Current Weight Wgt-80.7 kg Renally Cleared and Narrow Therapeutic Index Meds CrCl~ 100 mL/min Meds-OK QTc Value / Action Taken QTc-436 BP Control, Fever BP-118/86 Tmax-37.5C Electrolytes reviewed Na- 141 K+3.8 Mag-1.7 DVT Prophylaxis SCDs Opiate Usage / Scheduled Bowel Regimen Ordered Yes Yes Plt/SCr for Heparin / Enoxaparin Plts-145 SCr-0.76 INR for Warfarin NA H/H stable, WBC/Bands H&H- 7.3/21.8 WBC- 3.88 Antibiotic appropriateness Bactrim-DS Cultures and Sensitivities Urine-pending Blood-No Growth/48hrs Surgical ABX d/c within 24 hr NA DM control / Insulin Dosing BG-96 Heart Failure (Check EF%) (LOUIE's, B-Block, Diuretics) Toprol-XL IV to PO Switch No Home Meds Reviewed Yes Home Meds Not Ordered ASA, Ibuprofen, Comments Etienne out awaiting voiding trial, probable discharge tomorrow.
[2018-11-17 16:54] LABS: HCT 27.2 % (40.0-50.0)
[2018-11-17] MEDS: Tamsulosin 0.4 MG CAPCR PO (17:24)
[2018-11-17] MEDS: Atorvastatin 10 MG TAB PO (22:01)
[2018-11-17] MEDS: traZODone 50 MG TAB PO (22:02)
[2018-11-17] MEDS: Docusate Sodium 100 MG CAP PO (22:03)
[2018-11-17] MEDS: Milk of Magnesia 30 ML CUP 10 ML PO (22:05)
[2018-11-17] MEDS: traMADol 50 MG TAB PO (22:58)
--- NOTE | 2018-11-17 23:00 | NUR.NOTE ---
tramadol given for c/o lower back pain with relief Nursing Note:
[2018-11-18] VITALS (54 sets, daily range): BP systolic 75–131; BP diastolic 52–80; PULSE 62–88; RESP 12–26; TEMP 36.4–37.5; O2SAT 17–98
[2018-11-18] MEDS: traMADol 50 MG TAB PO ×2 (04:31→13:37)
--- NOTE | 2018-11-18 06:28 | W.PM.DS.N ---
Date of service: 11/18/18 Time of Service: 06:28 DS: Diagnosis Discharge Diagnosis (1) Atrial fibrillation with rapid ventricular response: Status: Resolved (2) Hypotension (arterial): Status: Resolved (3) Acute anemia: Status: Acute (4) Bladder stones: Status: Acute (5) BPH loc w urin obs/LUTS: Status: Chronic Discharge Plan Discharge Details Reason For Visit: BLADDER STONE Admit Date/Time: 11/13/18 14:18 Admit Provider: Jasper Marie Attending Provider: Aide Restrepo Primary Care Provider: Lindy Dixon Hospital Course Hospital Course: The patient was admitted and taken to the operating room on 11/13/2018. He underwent cystoscopy with holmium laser lithotripsy of 2 large bladder stones. He then had a transurethral resection and vaporization of his prostate tissue. The surgery was done under general anesthesia. He did well during the surgery and was admitted to the floor for continuous bladder irrigation. Later that evening, the patient became hypotensive. He initially improved with a fluid bolus. His postoperative hemoglobin was down to 7.9. When he became hypotensive again, he was given a unit of blood in his blood pressure again improved. His hemoglobin improved to 8.6. During this episode, his heart rate remained stable. We continued the bladder irrigation for another 24 hours. He did well through the day, but that evening (postoperative day #2) he developed atrial fibrillation. He was transferred to the intensive care unit for cardiac monitoring. His blood pressure was just a bit low at this time. His cardiac enzymes were unremarkable, but his hemoglobin was again below 8. His atrial fibrillation converted back to normal sinus rhythm with medical management, fluids and transfusion. Since then, he has remained in normal sinus rhythm We were able to discontinue his continuous bladder irrigation and remove his Etienne catheter on postoperative day #4. He initially had some blood in the urine as expected, but the urine has cleared nicely. He is voiding volumes of about 200 cc at a time. During his time in the hospital, he was given a total of 3 units of blood. After the final transfusion, his hemoglobin was 9. As long as his morning hemoglobin remained stable, he will be discharged to home later today. At the time of his discharge, his surgical pathology and stone analysis are not yet available. Home Meds and New Rx's Prescriptions: No Action aspirin [Adult Aspirin Regimen] 81 mg tablet,delayed release (DR/EC) 81 mg PO DAILY RF: 0 atorvastatin 10 mg tablet 10 mg PO QHS RF: 0 docusate sodium [Colace] 100 mg capsule 100 mg PO QHS RF: 0 finasteride 5 mg tablet 5 mg PO DAILY RF: 0 metoprolol succinate 25 mg tablet extended release 24 hr 25 mg PO DAILY RF: 0 tamsulosin 0.4 mg capsule 0.4 mg PO DAILY RF: 0 trazodone 50 mg tablet 50 mg PO DAILY RF: 0 magnesium hydroxide [Milk of Magnesia] 400 mg/5 mL Suspension 10 ml PO HS RF: 0 ibuprofen 200 mg Tablet 400 mg PO QID PRNRF: 0 acetaminophen [Tylenol] 325 mg Capsule 650 mg PO Q6H PRNRF: 0 Discharge Instructions Additional Instructions: F/U appt with Frank 1 week to review surgical pathology He is instructed not to do any heavy lifting (over 10 pounds) until his follow-up visit with Frank He may restart his aspirin and anti-inflammatory medications (as long as his urine remains transparent) He may shower We will ask him to refrain from driving until his follow-up with Frank No ejaculation for 4 to 6 weeks Pt does not need antibiotic prescription Pt has script for Tramadol at home (so no new pain meds needed) Pt to use OTC stool softeners Activity:: see above instructions Equipment/Supplies:: No Equipment Needed Diet:: As Tolerated Discharge Orders Other Ambulatory Orders: Basic Metabolic Panel (Routine) Timeframe: 20181119 Location: Determined by Patient Ordered By: Aide Restrepo Complete Blood Count w/Diff (Routine) Timeframe: 20181119 Location: Determined by Patient Ordered By: Aide Restrepo Magnesium (Routine) Timeframe: 20181119 Location: Determined by Patient Ordered By: Aide Restrepo Discharge Data Discharge Comment: Please double check with Dr Restrepo before pt is discharged Discharge Physician: Jasper Marie Exam Narrative Exam Narrative: He looks well this morning His vital signs are documented elsewhere in the chart He does not appear septic or toxic His chest wall motion is normal. His lungs are clear His cardiac exam shows a regular rate and rhythm His abdomen is soft with no guarding or rebound tenderness. His bladder is not distended. He is awake, alert and oriented. DS: Data Vitals/I&O Vitals and I&O: Vital Signs Temperature 36.4 C L 11/18/18 04:00 Temperature Source Temporal Artery Scan 11/18/18 04:00 Pulse 76 11/18/18 04:00 Pulse Rhythm Regular 11/17/18 16:38 Pulse 72 11/17/18 16:16 Respiratory Rate 17 11/18/18 04:00 Respiratory Effort Non-Labored 11/18/18 00:07 Respiratory Depth Normal 11/18/18 00:07 Respiratory Pattern Normal 11/18/18 00:07 Blood Pressure 119/78 11/18/18 04:00 Blood Pressure Mean 88 11/17/18 16:16 Blood Pressure Position Sitting 11/16/18 16:05 Pulse Oximetry 98 11/18/18 04:00 Respiratory End-tidal CO2 28 11/13/18 14:58 Oxygen Delivery Method Room Air 11/18/18 04:00 Oxygen Flow Rate 0 11/18/18 04:00 Pain Level 4 11/17/18 16:34 Comment 11/15/18 16:06 Intake & Output 11/17/18 11/17/18 11/18/18 11:59 23:59 11:59 Intake Total 780 / 2565 1785 / 2565 240 / 240 Output Total 1000 / 2950 1950 / 2950 1000 / 1000 Balance -220 / -385 -165 / -385 -760 / -760 Weight 80.7 kg 77.5 kg Intake: Oral 780 / 2040 1260 / 2040 240 / 240 Blood Product 525 / 525 Rbc Leuko Reduced Unit 525 / 525 [id number] Output: Urine 1000 / 2950 1950 / 2950 1000 / 1000 Other: Urine Color Dark Red Pale Pale Yellow Yellow Urine Appearance Hematuria Clear Clear Urine Odor None None Comment Voided dark red blood with clots. No visable clots. Voiding Methods Urinal Urinal Labs on day of discharge: Labs from last 24 hours 11/18/18 11/18/18 11/17/18 05:35 05:35 16:45 WBC Pending RBC Pending Hgb Pending 9.0 L Hct Pending 27.2 L D MCV Pending MCH Pending MCHC Pending RDW Pending Plt Count Pending MPV Pending Immature Gran % Neutrophils % Lymphocytes % Monocytes % Eosinophils % Basophils % Absolute Neutrophils Absolute Lymphocytes Absolute Monocytes Absolute Eosinophils Absolute Basophils Sodium Pending Potassium Pending Chloride Pending Carbon Dioxide Pending Anion Gap Pending BUN Pending Creatinine Pending Estimated GFR/1.73 m2 Pending Glucose Pending Calcium Pending Magnesium Pending Urine Color Urine Clarity Urine pH Ur Specific [place] Urine Protein Urine Ketones Urine Blood Urine Nitrite Urine Bilirubin Urine Urobilinogen Ur Leukocyte Esterase Urine RBC Urine WBC Ur Epithelial Cells Urine Crystals Urine Bacteria Urine Casts Urine Mucus Ur Culture Indicated? Urine Glucose Patient ABO/Rh Antibody Screen Crossmatch 11/17/18 11/17/18 11/17/18 11:35 07:45 06:10 WBC 3.88 L RBC 2.46 L Hgb 7.3 L Hct 21.8 L MCV 88.6 MCH 29.7 MCHC 33.5 RDW 14.9 H Plt Count 145 MPV 9.3 Immature Gran % 0.3 Neutrophils % 74.3 Lymphocytes % 14.2 Monocytes % 10.1 Eosinophils % 0.8 Basophils % 0.3 Absolute Neutrophils 2.88 Absolute Lymphocytes 0.55 L Absolute Monocytes 0.39 Absolute Eosinophils 0.03 Absolute Basophils 0.01 Sodium Potassium Chloride Carbon Dioxide Anion Gap BUN Creatinine Estimated GFR/1.73 m2 Glucose Calcium Magnesium Urine Color Yellow Urine Clarity Cloudy Urine pH 7.5 Ur Specific [place] 1.025 Urine Protein >=300 H Urine Ketones Negative Urine Blood Large H Urine Nitrite Negative Urine Bilirubin Negative Urine Urobilinogen 1.0 H Ur Leukocyte Esterase Trace H Urine RBC >50 H Urine WBC Ur Epithelial Cells Urine Crystals Urine Bacteria Urine Casts Urine Mucus Ur Culture Indicated? Yes Urine Glucose Negative Patient ABO/Rh O Negative Antibody Screen Negative Crossmatch See Detail 11/17/18 11/13/18 06:10 23:12 WBC RBC Hgb Hct MCV MCH MCHC RDW Plt Count MPV Immature Gran % Neutrophils % Lymphocytes % Monocytes % Eosinophils % Basophils % Absolute Neutrophils Absolute Lymphocytes Absolute Monocytes Absolute Eosinophils Absolute Basophils Sodium 141 Potassium 3.8 Chloride 106 Carbon Dioxide 26.1 Anion Gap 8.9 BUN 12 Creatinine 0.76 Estimated GFR/1.73 m2 >= 60.00 Glucose 96 Calcium 7.8 L Magnesium 1.7 L Urine Color Urine Clarity Urine pH Ur Specific [place] Urine Protein Urine Ketones Urine Blood Urine Nitrite Urine Bilirubin Urine Urobilinogen Ur Leukocyte Esterase Urine RBC Urine WBC Ur Epithelial Cells Urine Crystals Urine Bacteria Urine Casts Urine Mucus Ur Culture Indicated? Urine Glucose Patient ABO/Rh Antibody Screen Crossmatch See Detail 11/17/18 11:35 Urine - Reflex from Ua Urine Culture - Pending Preliminary micro results at discharge 11/15/18 11:20 Blood Culture - Preliminary Blood NO GROWTH 48 HOURS 11/15/18 11:20 Blood Culture - Preliminary Blood NO GROWTH 48 HOURS 11/17/18 11:35 Urine Culture - Pending Urine - Reflex from Ua [facility] Medical History Atrial fibrillation (Chronic) BPH (benign prostatic hyperplasia) (Chronic) Coronary artery disease (Chronic) Esophageal cancer (Acute) GERD (gastroesophageal reflux disease) (Chronic) High cholesterol (Chronic) History of bladder stone (Acute) Hypertension (Chronic) Neoplasm of pituitary gland (Acute) JONATAN (obstructive sleep apnea) (Chronic) Skin cancer of face (Acute) Surgical History History of cataract surgery (Chronic) History of esophageal surgery (Acute) History of esophagogastroduodenoscopy (EGD) (Chronic) History of prostate biopsy (Acute) History of tonsillectomy (Chronic) Hx of abdominal surgery (Acute) Hx of aortic valve replacement (Acute) Hx of CABG (Chronic) Hx of colonoscopy (Chronic) Social History Smoking/Tobacco Use Status: Former Tobacco Use Drug use: Never Substance use type: does not use Do you feel safe at home: Yes Do you feel safe in your relationship?: Yes
--- NOTE | 2018-11-18 06:48 | PGE_ITS ---
Date of Service Date of service: 11/18/18 Time of Service: 06:48 Assessment and Plan (1) BPH loc w urin obs/LUTS: Current visit: No Status: Chronic He is voiding reasonably well at this point in time. I would expect that he will be able to go home today, but this morning the labs are not yet available. As long as the labs are stable, he can go home later today. I have filled out all of the discharge instructions and orders, but I will ask the staff to double check with Dr. Restrepo to make sure he is appropriate for discharge (2) Bladder stones: Current visit: No Status: Acute Subjective Interval history since last seen: He is continued to void with a good stream. He is not having any dysuria. His urine is clearing quite nicely. He is having no chest pain or shortness of breath. He has not been lightheaded or dizzy Exam Narrative Exam Narrative: He looks well His vital signs are documented elsewhere. His blood pressure has remained at his baseline and his heart has remained in normal sinus rhythm His abdomen is soft. His bladder is not distended. He is awake and alert. Objective Objective Clinical Data: Abnormal lab results 11/13/18 11/17/18 11/17/18 Range/Units 23:12 06:10 06:10 WBC 3.88 L (4.4-10.8) k/cumm RBC 2.46 L (4.50-6.00) m/cumm Hgb 7.3 L (13.5-17.5) g/dL Hct 21.8 L (40.0-50.0) % RDW 14.9 H (11.8-14.1) % Absolute Lymphocytes 0.55 L (1.2-3.4) k/cumm Calcium 7.8 L (8.5-10.1) mg/dL Magnesium 1.7 L (1.8-2.4) mg/dL Urine Protein (Negative) mg/dL Urine Blood (Negative) Urine Urobilinogen (Up TO 0.2) EU/dL Ur Leukocyte Esterase (Negative) Urine RBC (0-2) Crossmatch See Detail 11/17/18 11/17/18 11/17/18 Range/Units 07:45 11:35 16:45 WBC (4.4-10.8) k/cumm RBC (4.50-6.00) m/cumm Hgb 9.0 L (13.5-17.5) g/dL Hct 27.2 L D (40.0-50.0) % RDW (11.8-14.1) % Absolute Lymphocytes (1.2-3.4) k/cumm Calcium (8.5-10.1) mg/dL Magnesium (1.8-2.4) mg/dL Urine Protein >=300 H (Negative) mg/dL Urine Blood Large H (Negative) Urine Urobilinogen 1.0 H (Up TO 0.2) EU/dL Ur Leukocyte Esterase Trace H (Negative) Urine RBC >50 H (0-2) Crossmatch See Detail Vital Signs Temperature 36.4 C L 11/18/18 04:00 Temperature Source Temporal Artery Scan 11/18/18 04:00 Pulse 76 11/18/18 04:00 Pulse Rhythm Regular 11/17/18 16:38 Pulse 72 11/17/18 16:16 Respiratory Rate 17 11/18/18 04:00 Respiratory Effort Non-Labored 11/18/18 00:07 Respiratory Depth Normal 11/18/18 00:07 Respiratory Pattern Normal 11/18/18 00:07 Blood Pressure 119/78 11/18/18 04:00 Blood Pressure Mean 88 11/17/18 16:16 Blood Pressure Position Sitting 11/16/18 16:05 Pulse Oximetry 98 11/18/18 04:00 Respiratory End-tidal CO2 28 11/13/18 14:58 Oxygen Delivery Method Room Air 11/18/18 04:00 Oxygen Flow Rate 0 11/18/18 04:00 Pain Level 4 11/17/18 16:34 Comment 11/15/18 16:06 Intake & Output 11/17/18 11/17/18 11/18/18 11:59 23:59 11:59 Intake Total 780 / 2565 1785 / 2565 240 / 240 Output Total 1000 / 2950 1950 / 2950 1000 / 1000 Balance -220 / -385 -165 / -385 -760 / -760 Weight 80.7 kg 77.5 kg Intake: Oral 780 / 2040 1260 / 2040 240 / 240 Blood Product 525 / 525 Rbc Leuko Reduced Unit 525 / 525 [id number] Output: Urine 1000 / 2950 1950 / 2950 1000 / 1000 Other: Urine Color Dark Red Pale Pale Yellow Yellow Urine Appearance Hematuria Clear Clear Urine Odor None None Comment Voided dark red blood with clots. No visable clots. Voiding Methods Urinal Urinal Laboratory Results WBC 3.88 k/cumm (4.4-10.8) L 11/17/18 06:10 RBC 2.46 m/cumm (4.50-6.00) L 11/17/18 06:10 Hgb 9.0 g/dL (13.5-17.5) L 11/17/18 16:45 Hct 27.2 % (40.0-50.0) L D 11/17/18 16:45 MCV 88.6 fL (80-95) 11/17/18 06:10 MCH 29.7 pg (27.0-33.0) 11/17/18 06:10 MCHC 33.5 g/dL (32.0-36.0) 11/17/18 06:10 RDW 14.9 % (11.8-14.1) H 11/17/18 06:10 Plt Count 145 x1000/uL (130-400) 11/17/18 06:10 MPV 9.3 fL (8.0-11.0) 11/17/18 06:10 Immature Gran % 0.3 11/17/18 06:10 74.3 11/17/18 06:10 14.2 11/17/18 06:10 10.1 11/17/18 06:10 0.8 11/17/18 06:10 0.3 11/17/18 06:10 Absolute Neutrophils 2.88 k/cumm (1.2-6.7) 11/17/18 06:10 Absolute Lymphocytes 0.55 k/cumm (1.2-3.4) L 11/17/18 06:10 Absolute Monocytes 0.39 k/cumm (0.11-0.7) 11/17/18 06:10 Absolute Eosinophils 0.03 k/cumm (0.0-0.7) 11/17/18 06:10 Absolute Basophils 0.01 k/cumm (0.0-0.2) 11/17/18 06:10 Sodium 141 mmol/L (136-145) 11/17/18 06:10 Potassium 3.8 mmol/L (3.5-5.1) 11/17/18 06:10 Chloride 106 mmol/L (98-107) 11/17/18 06:10 Carbon Dioxide 26.1 mmol/L (21.0-32.0) 11/17/18 06:10 8.9 mmol/L (3-11) 11/17/18 06:10 BUN 12 mg/dL (7-18) 11/17/18 06:10 0.76 mg/dL (0.70-1.30) 11/17/18 06:10 >= 60.00 (mL/min/1.73m2) 11/17/18 06:10 Glucose 96 mg/dL (70-100) 11/17/18 06:10 Calcium 7.8 mg/dL (8.5-10.1) L 11/17/18 06:10 Magnesium 1.7 mg/dL (1.8-2.4) L 11/17/18 06:10 0.5 mg/dL (0.2-1.0) 11/15/18 04:20 AST 10 U/L (15-37) L 11/15/18 04:20 ALT 22 U/L (12-78) 11/15/18 04:20 104 U/L (46-116) 11/15/18 04:20 0.05 ng/mL (0.00-0.06) 11/16/18 06:20 NT-Pro-B Natriuret Pep 2011 pg/mL (-299) H 11/15/18 09:14 5.7 g/dL (6.4-8.2) L 11/15/18 04:20 2.7 g/dL (3.4-5.0) L 11/15/18 04:20 Yellow (Yellow) 11/17/18 11:35 Cloudy (Clear) 11/17/18 11:35 7.5 (5-8) 11/17/18 11:35 Ur Specific [place] 1.025 (1.005-1.025) 11/17/18 11:35 >=300 mg/dL (Negative) H 11/17/18 11:35 Negative mg/dL (Negative) 11/17/18 11:35 Large (Negative) H 11/17/18 11:35 Negative (Negative) 11/17/18 11:35 Negative (Negative) 11/17/18 11:35 1.0 EU/dL (Up TO 0.2) H 11/17/18 11:35 Ur Leukocyte Esterase Trace (Negative) H 11/17/18 11:35 >50 (0-2) H 11/17/18 11:35 HPF (0-5) 11/17/18 11:35 Ur Epithelial Cells HPF (Negative) 11/17/18 11:35 HPF (Negative) 11/17/18 11:35 HPF (Negative) 11/17/18 11:35 LPF (Negative) 11/17/18 11:35 (Negative) 11/17/18 11:35 Ur Culture Indicated? Yes 11/17/18 11:35 Negative mg/dL (Negative) 11/17/18 11:35 Patient ABO/Rh O Negative 11/17/18 07:45 Antibody Screen Negative 11/17/18 07:45 Crossmatch See Detail 11/17/18 07:45
[2018-11-18 06:58] LABS: HCT 27.1 % (40.0-50.0); HGB 9.3 g/dL (13.5-17.5); Mean Corp. HGB Concentration 34.3 g/dL (32.0-36.0); Mean Corpuscular Hemoglobin 30.5 pg (27.0-33.0); Mean Corpuscular Volume 88.9 fL (80-95); Mean Platelet Volume 9.1 fL (8.0-11.0); Platelet Count 166 x1000/uL (130-400); RBC 3.05 m/cumm (4.50-6.00); RBC Distribution Width 15.3 % (11.8-14.1)
[2018-11-18 07:11] LABS: Anion Gap 10.5 mmol/L (3-11); BUN 10 mg/dL (7-18); CO2 25.5 mmol/L (21.0-32.0); Calcium 8.5 mg/dL (8.5-10.1); Chloride 104 mmol/L (98-107); Glucose 95 mg/dL (70-100); Magnesium 2.2 mg/dL (1.8-2.4); Potassium 3.7 mmol/L (3.5-5.1); Sodium 140 mmol/L (136-145)
[2018-11-18] MEDS: Acetaminophen 325 MG TAB 650 MG PO ×2 (07:16→19:35)
--- NOTE | 2018-11-18 08:16 | PDOC.CMDIS ---
- If Service Date Differs Date of service: 11/18/18 Time of Service: 08:17 Care Management Discharge Reason for Hospitalization: Bladder stone
[2018-11-18] MEDS: Sulfameth/Trimeth DS TAB 1 TAB PO ×2 (08:17→19:35)
[2018-11-18] MEDS: Finasteride 5 MG TAB PO (08:17)
[2018-11-18] MEDS: Metoprolol CR 25 MG TABCR PO (08:17)
--- NOTE | 2018-11-18 08:19 | W.PM.PROGNOT ---
Date of Service Date of service: 11/18/18 Time of Service: 12:10 Assessment and Plan (1) Near syncope: Current visit: Yes Status: Acute In setting of micturation - likely vasovagal, but the patient also admits to poor PO intake and could be dehydrated. He is getting a bolus of 1L of NS now - he might require more IVF. Will monitor orthostatics. Keep on tele, trend troponins, check EKG. I would not discharge the patient home today. (2) Atrial fibrillation with rapid ventricular response: Current visit: No Status: Resolved Now in NSR. Will monitor BP given above - did receive metoprolol. Echo with evidence of moderate pulmonary hypertension. Will need sleep study. No anticoagulation at this time. (3) Hypotension (arterial): Current visit: No Status: Resolved As above (4) Acute anemia: Current visit: No Status: Acute Stable, due to acute blood loss of hematuria. S/p 3 units pRBC's on this admission. H/H is better. Hematuria has not recurred - will monitor (5) Bladder stones: Current visit: No Status: Acute s/p evacuation - defer to primary team (6) BPH loc w urin obs/LUTS: Current visit: No Status: Chronic s/p vaporization of prostate, CBI d/c'ed. Defer to primary team. Subjective Interval history since last seen: Patient felt dizzy immediately post urination and felt he had to lay down in the bed. His BP is 75/56. He is still dizzy when in bed. Denies chest pain, shortness of breath, palpitations, nausea. IVF bolus started. Hematuria resolved. H/H is now going up. Passed VT. Exam Narrative Exam Narrative: General: Middle-aged male, sitting up in a chair, pale, slow to respond but responds HEENT: atraumatic, normocephalic, EOMI, MMM Heart: RRR, very quiet FREDDY heard Lungs: CTAB GI: abdomen is soft, nontender, nondistended Extremities: no e/c/c BLE's, trace pedal pulses B Objective Objective Clinical Data: Abnormal lab results 11/13/18 11/17/18 11/17/18 Range/Units 23:12 07:45 11:35 RBC (4.50-6.00) m/cumm Hgb (13.5-17.5) g/dL Hct (40.0-50.0) % RDW (11.8-14.1) % Urine Protein >=300 H (Negative) mg/dL Urine Blood Large H (Negative) Urine Urobilinogen 1.0 H (Up TO 0.2) EU/dL Ur Leukocyte Esterase Trace H (Negative) Urine RBC >50 H (0-2) Crossmatch See Detail See Detail 11/17/18 11/18/18 Range/Units 16:45 06:30 RBC 3.05 L (4.50-6.00) m/cumm Hgb 9.0 L 9.3 L (13.5-17.5) g/dL Hct 27.2 L D 27.1 L (40.0-50.0) % RDW 15.3 H (11.8-14.1) % Urine Protein (Negative) mg/dL Urine Blood (Negative) Urine Urobilinogen (Up TO 0.2) EU/dL Ur Leukocyte Esterase (Negative) Urine RBC (0-2) Crossmatch Vital Signs Temperature 36.4 C L 11/18/18 04:00 Temperature Source Temporal Artery Scan 11/18/18 04:00 Pulse 76 11/18/18 04:00 Pulse Rhythm Regular 11/17/18 16:38 Pulse 72 11/17/18 16:16 Respiratory Rate 17 11/18/18 04:00 Respiratory Effort Non-Labored 11/18/18 00:07 Respiratory Depth Normal 11/18/18 00:07 Respiratory Pattern Normal 11/18/18 00:07 Blood Pressure 119/78 11/18/18 04:00 Blood Pressure Mean 88 11/17/18 16:16 Blood Pressure Position Sitting 11/16/18 16:05 Pulse Oximetry 98 11/18/18 04:00 Respiratory End-tidal CO2 28 11/13/18 14:58 Oxygen Delivery Method Room Air 11/18/18 04:00 Oxygen Flow Rate 0 11/18/18 04:00 Pain Level 3 11/18/18 08:16 Comment 11/15/18 16:06 Intake & Output 11/17/18 11/17/18 11/18/18 11:59 23:59 11:59 Intake Total 780 / 2565 1785 / 2565 240 / 240 Output Total 1000 / 2950 1950 / 2950 1000 / 1000 Balance -220 / -385 -165 / -385 -760 / -760 Weight 80.7 kg 77.5 kg Intake: Oral 780 / 2040 1260 / 2040 240 / 240 Blood Product 525 / 525 Rbc Leuko Reduced Unit 525 / 525 [id number] Output: Urine 999 1000 / 999 Other: Urine Color Dark Red Pale Pale Yellow Yellow Urine Appearance Hematuria Clear Clear Urine Odor None None Comment Voided dark red blood with clots. No visable clots. Voiding Methods Urinal Urinal Laboratory Results WBC 4.40 k/cumm (4.4-10.8) 11/18/18 06:30 RBC 3.05 m/cumm (4.50-6.00) L 11/18/18 06:30 Hgb 9.3 g/dL (13.5-17.5) L 11/18/18 06:30 Hct 27.1 % (40.0-50.0) L 11/18/18 06:30 MCV 88.9 fL (80-95) 11/18/18 06:30 MCH 30.5 pg (27.0-33.0) 11/18/18 06:30 MCHC 34.3 g/dL (32.0-36.0) 11/18/18 06:30 RDW 15.3 % (11.8-14.1) H 11/18/18 06:30 Plt Count 166 x1000/uL (130-400) 11/18/18 06:30 MPV 9.1 fL (8.0-11.0) 11/18/18 06:30 Immature Gran % 0.3 11/17/18 06:10 74.3 11/17/18 06:10 14.2 11/17/18 06:10 10.1 11/17/18 06:10 0.8 11/17/18 06:10 0.3 11/17/18 06:10 Absolute Neutrophils 2.88 k/cumm (1.2-6.7) 11/17/18 06:10 Absolute Lymphocytes 0.55 k/cumm (1.2-3.4) L 11/17/18 06:10 Absolute Monocytes 0.39 k/cumm (0.11-0.7) 11/17/18 06:10 Absolute Eosinophils 0.03 k/cumm (0.0-0.7) 11/17/18 06:10 Absolute Basophils 0.01 k/cumm (0.0-0.2) 11/17/18 06:10 Sodium 140 mmol/L (136-145) 11/18/18 06:15 Potassium 3.7 mmol/L (3.5-5.1) 11/18/18 06:15 Chloride 104 mmol/L (98-107) 11/18/18 06:15 Carbon Dioxide 25.5 mmol/L (21.0-32.0) 11/18/18 06:15 10.5 mmol/L (3-11) 11/18/18 06:15 BUN 10 mg/dL (7-18) 11/18/18 06:15 0.80 mg/dL (0.70-1.30) 11/18/18 06:15 >= 60.00 (mL/min/1.73m2) 11/18/18 06:15 Glucose 95 mg/dL (70-100) 11/18/18 06:15 Calcium 8.5 mg/dL (8.5-10.1) 11/18/18 06:15 Magnesium 2.2 mg/dL (1.8-2.4) 11/18/18 06:15 0.5 mg/dL (0.2-1.0) 11/15/18 04:20 AST 10 U/L (15-37) L 11/15/18 04:20 ALT 22 U/L (12-78) 11/15/18 04:20 104 U/L (46-116) 11/15/18 04:20 0.05 ng/mL (0.00-0.06) 11/16/18 06:20 NT-Pro-B Natriuret Pep 2011 pg/mL (-299) H 11/15/18 09:14 5.7 g/dL (6.4-8.2) L 11/15/18 04:20 2.7 g/dL (3.4-5.0) L 11/15/18 04:20 Yellow (Yellow) 11/17/18 11:35 Cloudy (Clear) 11/17/18 11:35 7.5 (5-8) 11/17/18 11:35 Ur Specific [employer] 1.025 (1.005-1.025) 11/17/18 11:35 >=300 mg/dL (Negative) H 11/17/18 11:35 Negative mg/dL (Negative) 11/17/18 11:35 Large (Negative) H 11/17/18 11:35 Negative (Negative) 11/17/18 11:35 Negative (Negative) 11/17/18 11:35 1.0 EU/dL (Up TO 0.2) H 11/17/18 11:35 Ur Leukocyte Esterase Trace (Negative) H 11/17/18 11:35 >50 (0-2) H 11/17/18 11:35 HPF (0-5) 11/17/18 11:35 Ur Epithelial Cells HPF (Negative) 11/17/18 11:35 HPF (Negative) 11/17/18 11:35 HPF (Negative) 11/17/18 11:35 LPF (Negative) 11/17/18 11:35 (Negative) 11/17/18 11:35 Ur Culture Indicated? Yes 11/17/18 11:35 Negative mg/dL (Negative) 11/17/18 11:35 Patient ABO/Rh O Negative 11/17/18 07:45 Antibody Screen Negative 11/17/18 07:45 Crossmatch See Detail 11/17/18 07:45
[2018-11-18] MEDS: Normal Saline 1,000 ML 999 ML IV (12:16)
[2018-11-18 13:16] LABS: Troponin I < 0.05 ng/mL (0.00-0.06)
[2018-11-18] MEDS: DEXTROSE 5%-0.9% SALINE 1,000 ML 125 ML IV ×2 (13:18→20:47)
[2018-11-18] MEDS: Milk of Magnesia 30 ML CUP PO (13:38)
--- NOTE | 2018-11-18 13:53 | NUR.NOTE ---
1150 Pt stood to void at bedside, and became very dizzy. for a few seconds, no more than 5, he was not able to respond to verbal or tactile stilmuli- bp 75/52. Dr. Restrepo present, see orders and mar. NS bolus started with good rise in bp. EKG done and labs drawn. Feeling better at this time.
--- NOTE | 2018-11-18 14:06 | PDOC.CMPRO ---
- If Service Date Differs Date of service: 11/18/18 Time of Service: 14:06 Care Management Progress Note S/O:Alan will be discharged home when medically ready he intended to be discharged today however he has a syncopal episode and is now receiving IV fluids. Anticipate no additional services at time of discharge and follow up with his [facility] care. A: Alan is a 67 year old male admitted with bladder obstruction, with a history of BPH and atrial fib. P:Alan, will be discharged home when medically ready and follow up with primary care and . With recommendations that his primary care follow up with his need for a possible Zio patch once he returns home. CM will continue to provide support discharged planning.
[2018-11-18] MEDS: Tamsulosin 0.4 MG CAPCR PO (17:06)
[2018-11-18 20:31] LABS: Troponin I < 0.05 ng/mL (0.00-0.06)
[2018-11-18] MEDS: Docusate Sodium 100 MG CAP PO (22:21)
[2018-11-18] MEDS: traZODone 50 MG TAB PO (22:21)
[2018-11-18] MEDS: Atorvastatin 10 MG TAB PO (22:21)
[2018-11-18] MEDS: Milk of Magnesia 30 ML CUP 10 ML PO (22:22)
[2018-11-19] VITALS (71 sets, daily range): BP systolic 51–144; BP diastolic 32–84; PULSE 59–117; RESP 13–26; TEMP 35.4–36.8; O2SAT 88–97
[2018-11-19] MEDS: DEXTROSE 5%-0.9% SALINE 1,000 ML 125 ML IV ×2 (04:24→12:41)
[2018-11-19 04:31] LABS: Abs Immature Grans 0.02 k/cumm (0.0-0.09); Absolute Basophil Count 0.01 k/cumm (0.0-0.2); Absolute Eosinophil Count 0.08 k/cumm (0.0-0.7); Absolute Monocyte Count 0.49 k/cumm (0.11-0.7); Absolute Neutrophil Count 3.32 k/cumm (1.2-6.7); Basophils % 0.2; Eosinophils % 1.7; HCT 29.2 % (40.0-50.0); HGB 9.5 g/dL (13.5-17.5); Immature Grans % 0.4; Lymphocytes % 15.2; Mean Corp. HGB Concentration 32.5 g/dL (32.0-36.0); Mean Corpuscular Hemoglobin 29.2 pg (27.0-33.0); Mean Corpuscular Volume 89.8 fL (80-95); Mean Platelet Volume 8.9 fL (8.0-11.0); Monocytes % 10.6; Neutrophils % 71.9; Platelet Count 175 x1000/uL (130-400); RBC 3.25 m/cumm (4.50-6.00); RBC Distribution Width 15.8 % (11.8-14.1); White Blood Cell Count 4.62 k/cumm (4.4-10.8)
[2018-11-19 04:47] LABS: Anion Gap 8.3 mmol/L (3-11); BUN 9 mg/dL (7-18); CO2 25.7 mmol/L (21.0-32.0); CREATININE 0.67 mg/dL (0.70-1.30); Calcium 8.3 mg/dL (8.5-10.1); Chloride 105 mmol/L (98-107); Glucose 124 mg/dL (70-100); Magnesium 2.2 mg/dL (1.8-2.4); Potassium 3.9 mmol/L (3.5-5.1); Sodium 139 mmol/L (136-145)
[2018-11-19 04:51] LABS: Troponin I < 0.05 ng/mL (0.00-0.06)
[2018-11-19] MEDS: Acetaminophen 325 MG TAB 650 MG PO ×3 (06:15→20:13)
[2018-11-19] MEDS: Milk of Magnesia 30 ML CUP PO (08:03)
[2018-11-19] MEDS: Metoprolol CR 25 MG TABCR PO (08:03)
[2018-11-19] MEDS: Finasteride 5 MG TAB PO (08:03)
[2018-11-19] MEDS: Sulfameth/Trimeth DS TAB 1 TAB PO ×2 (08:03→20:14)
[2018-11-19] MEDS: Normal Saline 1,000 ML 1000 ML IV (11:41)
--- NOTE | 2018-11-19 12:29 | W.PM.PROGNOT ---
Date of Service Date of service: 11/19/18 Time of Service: 12:30 Assessment and Plan (1) Near syncope: Current visit: Yes Status: Acute Slightly orthostatic this morning; This time, this was more of an orthostatic prodrome, but there possibly was a vagal stimulus - patient did have an urge to have a BM before the walk. Regardless, there is no role for his flomax anymore - and it could be contributing to his orthostasis. D/c flomax. Continue IVF after the bolus. Start midodrine. Keep the patient in the hospital overnight. (2) Atrial fibrillation with rapid ventricular response: Current visit: No Status: Resolved Now in NSR. Continue metoprolol - I do not think it is contributing to the near syncopal episodes. Echo with evidence of moderate pulmonary hypertension. Will need sleep study. No anticoagulation at this time. (3) Hypotension (arterial): Current visit: No Status: Resolved As above (4) Acute anemia: Current visit: No Status: Acute Stable, due to acute blood loss of hematuria. S/p 3 units pRBC's on this admission. H/H is better. Hematuria has not recurred - will monitor (5) Bladder stones: Current visit: No Status: Acute s/p evacuation - defer to primary team (6) BPH loc w urin obs/LUTS: Current visit: No Status: Chronic s/p vaporization of prostate, CBI d/c'ed. I d/c'ed flomax. Defer to primary team. Subjective Interval history since last seen: The patient had another near-syncopal episode today - this time while walking. He felt dizzy, and his BP dropped to 51/32. This again is improving with supine positioning and IVF. The patient denies chest pain, shortness of breath, nausea, vomiting. There has been no bleeding/hematuria. Exam Narrative Exam Narrative: General: Middle-aged male, laying in bed, head elevated, pale HEENT: atraumatic, normocephalic, EOMI, MMM Heart: RRR, very quiet FREDDY heard Lungs: CTAB GI: abdomen is soft, nontender, nondistended Extremities: no e/c/c BLE's, trace pedal pulses B Objective Objective Clinical Data: Abnormal lab results 11/19/18 11/19/18 Range/Units 04:16 04:16 RBC 3.25 L (4.50-6.00) m/cumm Hgb 9.5 L (13.5-17.5) g/dL Hct 29.2 L (40.0-50.0) % RDW 15.8 H (11.8-14.1) % Absolute Lymphocytes 0.70 L (1.2-3.4) k/cumm Creatinine 0.67 L (0.70-1.30) mg/dL Glucose 124 H (70-100) mg/dL Calcium 8.3 L (8.5-10.1) mg/dL Vital Signs Temperature 35.4 C L 11/19/18 12:04 Temperature Source Tympanic 11/19/18 12:04 Pulse 66 11/19/18 09:32 Pulse Rhythm Regular 11/19/18 08:21 Pulse 71 11/19/18 08:00 Respiratory Rate 20 11/19/18 08:00 Respiratory Effort 11/19/18 08:21 Respiratory Depth Normal 11/19/18 08:21 Respiratory Pattern Normal 11/19/18 08:21 Blood Pressure 116/75 11/19/18 07:49 Blood Pressure Mean 84 11/19/18 07:49 Blood Pressure Position Sitting 11/16/18 16:05 Pulse Oximetry 96 11/19/18 00:05 Respiratory End-tidal CO2 28 11/13/18 14:58 Oxygen Delivery Method Room Air 11/19/18 08:21 Oxygen Flow Rate 0 11/19/18 08:21 Pain Level 3 11/19/18 07:15 Comment 11/18/18 20:00 Intake & Output 11/18/18 11/19/18 11/19/18 23:59 11:59 23:59 Intake Total 2155.417 / 2395.417 1152.083 / 1152.083 Output Total 1325 / 2525 925 / 925 Balance 830.417 / -129.583 227.083 / 227.083 Weight 76.2 kg Intake: IV 1935.417 / 1935.417 952.083 / 952.083 Oral 220 / 460 200 / 200 Output: Urine 1325 / 2525 925 / 925 Other: Urine Color Dark Marleen Light Marleen Urine Appearance Clear Clear Urine Odor None None Stool Size Large Stool Characteristics Formed Hard Voiding Methods Urinal Urinal Laboratory Results WBC 4.62 k/cumm (4.4-10.8) 11/19/18 04:16 RBC 3.25 m/cumm (4.50-6.00) L 11/19/18 04:16 Hgb 9.5 g/dL (13.5-17.5) L 11/19/18 04:16 Hct 29.2 % (40.0-50.0) L 11/19/18 04:16 MCV 89.8 fL (80-95) 11/19/18 04:16 MCH 29.2 pg (27.0-33.0) 11/19/18 04:16 MCHC 32.5 g/dL (32.0-36.0) 11/19/18 04:16 RDW 15.8 % (11.8-14.1) H 11/19/18 04:16 Plt Count 175 x1000/uL (130-400) 11/19/18 04:16 MPV 8.9 fL (8.0-11.0) 11/19/18 04:16 Immature Gran % 0.4 11/19/18 04:16 71.9 11/19/18 04:16 15.2 11/19/18 04:16 10.6 11/19/18 04:16 1.7 11/19/18 04:16 0.2 11/19/18 04:16 Absolute Neutrophils 3.32 k/cumm (1.2-6.7) 11/19/18 04:16 Absolute Lymphocytes 0.70 k/cumm (1.2-3.4) L 11/19/18 04:16 Absolute Monocytes 0.49 k/cumm (0.11-0.7) 11/19/18 04:16 Absolute Eosinophils 0.08 k/cumm (0.0-0.7) 11/19/18 04:16 Absolute Basophils 0.01 k/cumm (0.0-0.2) 11/19/18 04:16 Sodium 139 mmol/L (136-145) 11/19/18 04:16 Potassium 3.9 mmol/L (3.5-5.1) 11/19/18 04:16 Chloride 105 mmol/L (98-107) 11/19/18 04:16 Carbon Dioxide 25.7 mmol/L (21.0-32.0) 11/19/18 04:16 8.3 mmol/L (3-11) 11/19/18 04:16 BUN 9 mg/dL (7-18) 11/19/18 04:16 0.67 mg/dL (0.70-1.30) L 11/19/18 04:16 >= 60.00 (mL/min/1.73m2) 11/19/18 04:16 Glucose 124 mg/dL (70-100) H 11/19/18 04:16 Calcium 8.3 mg/dL (8.5-10.1) L 11/19/18 04:16 Magnesium 2.2 mg/dL (1.8-2.4) 11/19/18 04:16 0.5 mg/dL (0.2-1.0) 11/15/18 04:20 AST 10 U/L (15-37) L 11/15/18 04:20 ALT 22 U/L (12-78) 11/15/18 04:20 104 U/L (46-116) 11/15/18 04:20 < 0.05 ng/mL (0.00-0.06) 11/19/18 04:16 NT-Pro-B Natriuret Pep 2011 pg/mL (-299) H 11/15/18 09:14 5.7 g/dL (6.4-8.2) L 11/15/18 04:20 2.7 g/dL (3.4-5.0) L 11/15/18 04:20 Yellow (Yellow) 11/17/18 11:35 Cloudy (Clear) 11/17/18 11:35 7.5 (5-8) 11/17/18 11:35 Ur Specific [place] 1.025 (1.005-1.025) 11/17/18 11:35 >=300 mg/dL (Negative) H 11/17/18 11:35 Negative mg/dL (Negative) 11/17/18 11:35 Large (Negative) H 11/17/18 11:35 Negative (Negative) 11/17/18 11:35 Negative (Negative) 11/17/18 11:35 1.0 EU/dL (Up TO 0.2) H 11/17/18 11:35 Ur Leukocyte Esterase Trace (Negative) H 11/17/18 11:35 >50 (0-2) H 11/17/18 11:35 HPF (0-5) 11/17/18 11:35 Ur Epithelial Cells HPF (Negative) 11/17/18 11:35 HPF (Negative) 11/17/18 11:35 HPF (Negative) 11/17/18 11:35 LPF (Negative) 11/17/18 11:35 (Negative) 11/17/18 11:35 Ur Culture Indicated? Yes 11/17/18 11:35 Negative mg/dL (Negative) 11/17/18 11:35 Patient ABO/Rh O Negative 11/17/18 07:45 Antibody Screen Negative 11/17/18 07:45 Crossmatch See Detail 11/17/18 07:45
--- NOTE | 2018-11-19 13:47 | CHAPLAIN ---
Alan is hoping to be discharged today after a day or to delay due unexpected issues. His is with him and they are very much looking forward to getting home and being able to enjoy their [facility] time together again. They have both worked hard all their lives and had been enjoying their time together until Alan ended up with medical issues that needed addressing.
[2018-11-19] MEDS: Midodrine 2.5 MG TAB PO ×2 (14:11→20:14)
[2018-11-19 15:04] LABS: 1st Constituent: 100% Uric acid
--- NOTE | 2018-11-19 16:14 | PDOC.CMPRO ---
- If Service Date Differs Date of service: 11/19/18 Time of Service: 16:14 Care Management Progress Note S/O:Alan will not be discharged today he continues to have hypotension possibly medication related. His spouse is at the bedside, he is considering home health services however he is unsure he would like them at this time. He remains in the ICU today, no change in status. A: Alan is a 67 year old male admitted with bladder obstruction, with a history of BPH and atrial fib. P:Alan, will be discharged home when medically ready and follow up with primary care and . With recommendations that his primary care follow up with his need for a possible Zio patch once he returns home. CM will continue to provide support discharged planning.
--- NOTE | 2018-11-19 17:34 | NUR.NOTE ---
Significantly depressed mood. Pt states this is so discouraging, I haven't felt well for a long time and I'm not getting better Swearing at this time and teary eyed. Pt ate only few bites of supper, states I have no appetite. Pt also states maybe I need to have my esophagus dilated again. Sat with pt for a few minutes. Pt's has gone home for the night.
[2018-11-19] MEDS: Atorvastatin 10 MG TAB PO (22:35)
[2018-11-19] MEDS: Docusate Sodium 100 MG CAP PO (22:35)
[2018-11-19] MEDS: Milk of Magnesia 30 ML CUP 10 ML PO (22:35)
[2018-11-19] MEDS: traZODone 50 MG TAB PO (22:43)
[2018-11-19] MEDS: traMADol 50 MG TAB PO (23:34)
[2018-11-20] VITALS (35 sets, daily range): BP systolic 99–141; BP diastolic 60–86; PULSE 54–87; RESP 13–26; TEMP 36.3
[2018-11-20] MEDS: Acetaminophen 325 MG TAB 650 MG PO ×4 (02:17→12:48)
[2018-11-20] MEDS: DEXTROSE 5%-0.9% SALINE 1,000 ML 125 ML IV (03:56)
[2018-11-20] MEDS: traMADol 50 MG TAB PO ×2 (05:47→12:47)
--- NOTE | 2018-11-20 06:19 | NUR.NOTE ---
pt awakened at about 0200 c/o pain to the area of his back where the tumor is. To early for tramadol. give 650 tylenol. Tramadol given at 0530 as requested. Sleeping after med.Nursing Note:
--- NOTE | 2018-11-20 08:40 | PDOC.CMDIS ---
- If Service Date Differs Date of service: 11/20/18 Time of Service: 08:40 LACE Index Scoring Tool - Questions: Length of Stay (in days): 7 - 13 Acuity (Admit via E.D.?): No Comorbidities: Previous M.I., Any Tumor E.D. Visits: 0 - Answers: Total Score: 8 Risk of Readmission: Low Risk Care Management Discharge Reason for Hospitalization: Bladder stone Discharge Plan: Alan is being dicharged home today he will have new home health services for nursing and PT, in addition he should be considered for palliative through home health per provider. His spouse will transport him home CM contacted primary care and faxed discharge information. Alan will be provided a weeks worth of Midodrine for hypotension and his primary will need to continue this medication and send a prescription to his mail order pharmacy. CM will request [facility] to follow up. CM faxed information to [facility]. Patient/Family Education Needs: Discharge education, limitations and follow up plan of care including ask me three and self management. Services Needed at Discharge: Home Health Care Services, Physical Therapy
[2018-11-20] MEDS: Sulfameth/Trimeth DS TAB 1 TAB PO (08:42)
[2018-11-20] MEDS: Finasteride 5 MG TAB PO (08:42)
[2018-11-20] MEDS: Midodrine 2.5 MG TAB PO (08:42)
[2018-11-20] MEDS: Metoprolol CR 25 MG TABCR PO (08:42)
[2018-11-20 09:07] LABS: Anion Gap 10.7 mmol/L (3-11); BUN 8 mg/dL (7-18); CO2 22.3 mmol/L (21.0-32.0); CREATININE 0.68 mg/dL (0.70-1.30); Calcium 8.2 mg/dL (8.5-10.1); Chloride 106 mmol/L (98-107); Glucose 123 mg/dL (70-100); Magnesium 2.3 mg/dL (1.8-2.4); Potassium 3.7 mmol/L (3.5-5.1); Sodium 139 mmol/L (136-145)
--- NOTE | 2018-11-20 12:47 | W.PM.DS.N ---
Date of service: 11/20/18 Time of Service: 12:47 DS: Diagnosis Discharge Diagnosis (1) Near syncope: Status: Acute Asessment and Plan: in setting of orthostatic hypotension while on flomax (2) Atrial fibrillation with rapid ventricular response: Status: Resolved (3) Hypotension (arterial): Status: Resolved (4) Acute anemia: Status: Acute (5) Bladder stones: Status: Acute (6) BPH loc w urin obs/LUTS: Status: Chronic (7) Orthostatic hypotension: Status: Acute Discharge Plan Disposition Patient Disposition: HOME W/HOME HEALTH SERVICE Condition: Stable Discharge Details Reason For Visit: BLADDER STONE Admit Date/Time: 11/13/18 14:18 Admit Provider: Jasper Marie Attending Provider: Aide Restrepo Primary Care Provider: Lindy Dixon [facility] Course Hospital Course: Mr Cantu is a 67 year old male with PMHx of paroxysmal Atrial fibrillation, not on anticoagulation, as well as BPH, bladder stones, as well as esophageal cancer, chronic pain due to a back mass (under workup), who was admitted to [facility] urology service and taken to the operating room on 11/13/2018. He underwent cystoscopy with holmium laser lithotripsy of 2 large bladder stones. He then had a transurethral resection and vaporization of his prostate tissue. The surgery was done under general anesthesia. He did well during the surgery and was admitted to the floor for continuous bladder irrigation. Later that evening, the patient became hypotensive. He initially improved with a fluid bolus. His postoperative hemoglobin was down to 7.9. When he became hypotensive again, he was given a unit of blood in his blood pressure again improved. His hemoglobin improved to 8.6. During this episode, his heart rate remained stable. We continued the bladder irrigation for another 24 hours. He did well through the day, but that evening (postoperative day #2) he developed rapid atrial fibrillation. He was transferred to the intensive care unit for cardiac monitoring. His blood pressure was just a bit low at this time. His cardiac enzymes were unremarkable, but his hemoglobin was again below 8. His atrial fibrillation converted back to normal sinus rhythm with medical management, fluids and transfusion. Since then, he has remained in normal sinus rhythm. We were able to discontinue his continuous bladder irrigation and remove his Etienne catheter on postoperative day #4. He initially had some blood in the urine as expected, but the urine has cleared nicely. He is voiding volumes of about 200 cc at a time. During his time in the hospital, he was given a total of 3 units of blood. After the final transfusion, his hemoglobin was 9 and it is up to 9.5 on the day of discharge. The patient had a near syncopal episode on 11/18/18 post micturation with significant orthostasis. He was treated with aggressive IVF. There was no role for blood transfusion at that time as the patient's hematuria has resolved and hemoglobin as stable. On 11/19/17, the patient was very minimally orthostatic on vital sign check in the morning - however, again, had a near syncopal episode while walking with blood pressures dipping down in to SBPs of 50-60's. Again, he was quite fluid responsive, but orthostasis continued to be noted. We stopped his flomax, added midodrine, and continued his IVF for the next 24 hours. On the day of discharge, the patient is very minimally orthostatic in the morning; he kept his blood pressures up while walking and was not symptomatic. He was able to urinate with post-micturation BP check - BP remained stable. He is medically stable for discharge home today on midodrine (1 week is being prescribed; PCP to take over prescription if needed), which could later be discontinued by PCP as flomax is washing will have had time to wash out of the patient's system. Importantly, the patient is being referred to palliative care as outpatient. He would benefit from home health nursing and PT on discharge. At the time of his discharge, his surgical pathology and stone analysis are not yet available. Care for patient and preparation of discharge summary on day of discharge took 60 minutes. Home Meds and New Rx's Prescriptions: New midodrine 5 mg Tablet 2.5 mg PO TID Qty: 21 RF: 0 Continued aspirin [Adult Aspirin Regimen] 81 mg tablet,delayed release (DR/EC) 81 mg PO DAILY RF: 0 atorvastatin 10 mg tablet 10 mg PO QHS RF: 0 docusate sodium [Colace] 100 mg capsule 100 mg PO QHS RF: 0 finasteride 5 mg tablet 5 mg PO DAILY RF: 0 metoprolol succinate 25 mg tablet extended release 24 hr 25 mg PO DAILY RF: 0 trazodone 50 mg tablet 50 mg PO DAILY RF: 0 magnesium hydroxide [Milk of Magnesia] 400 mg/5 mL Suspension 10 ml PO HS RF: 0 acetaminophen [Tylenol] 325 mg Capsule 650 mg PO Q6H PRNRF: 0 Discontinued tamsulosin 0.4 mg capsule 0.4 mg PO DAILY RF: 0 ibuprofen 200 mg Tablet 400 mg PO QID PRNRF: 0 Discharge Instructions Additional Instructions: F/U appt with Frank 1 week to review surgical pathology He is instructed not to do any heavy lifting (over 10 pounds) until his follow-up visit with Frank He may restart his aspirin and anti-inflammatory medications (as long as his urine remains transparent) after several days. He may shower We will ask him to refrain from driving until his follow-up with Frank No ejaculation for 4 to 6 weeks Pt does not need antibiotic prescription Pt has script for Tramadol at home (so no new pain meds needed) Pt to use OTC stool softeners Care Plan Goals: Home with home health RN and PT. Palliative care referral. Activity:: Activity as Tolerated Equipment/Supplies:: No Equipment Needed Diet:: As Tolerated Discharge Orders Discharge Orders: Discharge Order (Routine); Ordered 11/20/18 Ordered By: Jasper Marie Other Ambulatory Orders: Basic Metabolic Panel (Routine) Timeframe: 20181119 Location: Determined by Patient Ordered By: Aide Restrepo Complete Blood Count w/Diff (Routine) Timeframe: 20181119 Location: Determined by Patient Ordered By: Aide Restrepo Magnesium (Routine) Timeframe: 20181119 Location: Determined by Patient Ordered By: Aide Restrepo Discharge Data Discharge Comment: Please double check with Dr Restrepo before pt is discharged Exam Narrative Exam Narrative: General: Middle-aged male, sitting up in bed, looks better HEENT: atraumatic, normocephalic, EOMI, MMM Heart: RRR, very quiet FREDDY heard Lungs: CTAB GI: abdomen is soft, nontender, nondistended Extremities: no e/c/c BLE's, trace pedal pulses B DS: Data Vitals/I&O Vitals and I&O: Vital Signs Temperature 36.6 C 11/19/18 23:45 Temperature Source Temporal Artery Scan 11/19/18 23:45 Pulse 65 11/20/18 12:15 Pulse Rhythm Regular 11/20/18 09:12 Pulse 72 11/20/18 12:15 Respiratory Rate 19 11/20/18 12:15 Respiratory Effort Non-Labored 11/20/18 09:12 Respiratory Depth Normal 11/20/18 09:12 Respiratory Pattern Normal 11/20/18 09:12 Blood Pressure 131/72 11/20/18 12:15 Blood Pressure Mean 87 11/20/18 12:15 Blood Pressure Position Sitting 11/16/18 16:05 Pulse Oximetry 95 11/19/18 23:45 Respiratory End-tidal CO2 28 11/13/18 14:58 Oxygen Delivery Method Room Air 11/19/18 23:45 Oxygen Flow Rate 0 11/19/18 23:45 Pain Level 5 11/20/18 08:39 Comment 11/18/18 20:00 Intake & Output 11/19/18 11/20/18 11/20/18 23:59 11:59 23:59 Intake Total 3200 / 4352.083 175 / 175 Output Total 825 / 1750 580 / 755 175 / 755 Balance 2375 / 2602.083 -405 / -580 -175 / -580 Weight 82.5 kg Intake: IV 2700 / 3652.083 Oral 500 / 700 175 / 175 Output: Urine 825 / 1750 580 / 755 175 / 755 Other: Urine Color Pale Light Marleen Dark Marleen Yellow Urine Appearance Clear Clear Clear Urine Odor None Normal Normal Comment No hematuria noted. Voiding Methods Urinal Urinal Urinal Completed studies during hospitalization [Text1]: CTA chest 11/15/18: 1. No evidence of a pulmonary embolus, thoracic aortic dissection or aneurysm. 2. Bilateral pleural effusions with subjacent atelectasis. 3. Post surgical changes of a gastric pull up. 4. Retroperitoneal soft tissue at the level of the renal arteries suspicious for adenopathy. Retroperitoneal fibrosis or mass cannot be excluded. If there are prior films for comparison, they may be submitted for further evaluation. 5. Question mild dilatation of the left renal collecting system. There is incompletely imaged on this examination. Follow up is recommended. Echo 11/17/18: 1. Left ventricle: The cavity size was normal. Systolic function was hyperdynamic. The estimated ejection fraction was 65-70%. Diastolic parameters were normal for age. There was no evidence of elevated ventricular filling pressure by Doppler parameters. 2. Aortic valve: There was mild stenosis. Peak velocity (S): 2.3m/sec. Mean gradient (S): 12.2mm Hg. VTI ratio of LVOT to aortic valve: 0.57. Valve area (VTI): 1.3cm^2. 3. Mitral valve: Mildly calcified annulus. 4. Left atrium: The atrium was mildly dilated. 5. Right ventricle: The cavity size was normal. Wall thickness was normal. Systolic function was normal. 6. Right atrium: The atrium was mildly dilated. 7. Atrial septum: No defect or patent foramen ovale was identified. 8. Pulmonary arteries: Pulmonary systolic pressure was >= 35mm Hg. 9. Inferior vena cava: Poorly visualized. Labs on day of discharge: Labs from last 24 hours 11/20/18 11/18/18 11/13/18 08:30 04:00 12:59 Sodium 139 Potassium 3.7 Chloride 106 Carbon Dioxide 22.3 Anion Gap 10.7 BUN 8 Creatinine 0.68 L Estimated GFR/1.73 m2 >= 60.00 Glucose 123 H Calcium 8.2 L Magnesium 2.3 Troponin I Cancelled Stone Analysis Not Applicable Stone Source Bladder Stone Constituent 1 100% uric acid Stone Constituent 2 Not Applicable Stone Constituent 3 Not Applicable Major Stone Nidus Not Applicable Minor Stone Nidus Not Applicable Major Stone Shell Not Applicable Minor Stone Shell Not Applicable Stone Comment Not Applicable Preliminary micro results at discharge 11/15/18 11:20 Blood Culture - Preliminary Blood NO GROWTH 96 HOURS 11/15/18 11:20 Blood Culture - Preliminary Blood NO GROWTH 96 HOURS [facility] Medical History Atrial fibrillation (Chronic) BPH (benign prostatic hyperplasia) (Chronic) Coronary artery disease (Chronic) Esophageal cancer (Acute) GERD (gastroesophageal reflux disease) (Chronic) High cholesterol (Chronic) History of bladder stone (Acute) Hypertension (Chronic) Neoplasm of pituitary gland (Acute) JONATAN (obstructive sleep apnea) (Chronic) Skin cancer of face (Acute) Surgical History History of cataract surgery (Chronic) History of esophageal surgery (Acute) History of esophagogastroduodenoscopy (EGD) (Chronic) History of prostate biopsy (Acute) History of tonsillectomy (Chronic) Hx of abdominal surgery (Acute) Hx of aortic valve replacement (Acute) Hx of CABG (Chronic) Hx of colonoscopy (Chronic) Social History Smoking/Tobacco Use Status: Former Tobacco Use Drug use: Never Substance use type: does not use Do you feel safe at home: Yes Do you feel safe in your relationship?: Yes
--- NOTE | 2018-11-20 13:07 | PDOC.HHF2F ---
1. Encounter Date and Reason I certify that UMAIR DAVISON was seen by Aide Restrepo on 11/20/18 and that I had a [id number] encounter with this patient that meets the physician face to face encounter requirements. 2. Clinical Findings Supporting Skilled Need and Homebound Status I certify that home health services are medically necessary, include either intermittent group home and/or physical/speech therapy, and that this patient is homebound in that absences from the home require considerable and taxing effort and are infrequent or of short duration, or are attributable to the need to receive medical care. [X] (a) Attached documentation from encounter provides clinical findings supporting skilled need and homebound status (including what assistance patient requires to leave the home). The encounter with the patient was in whole, or in part, for the following medical condition, which is the primary reason for home health care: BLADDER STONE Mcfp: frequent near syncopal episodes at home, orthostatic hypotension, chronic pain, evalaute/medication teaching Physical Therapy: eval/treat Homebound: unable to leave home without assistance 3. Certification and Authentication I certify that I composed the above information based on my clinical judgement relating to this patient's medical condition and, if applicable, clinical findings communicated to me by the NPP or inpatient physician who performed the Home Health Referral. All further orders will be obtained through ___Lindy Dixon (Community Based Physician - PCP)
== END 2018-11-20 14:20 | disposition home health service (06) | DRG 666 ==
LOC: MS 15:24 → ICU 11-15 04:59
PROVIDERS: General Practice; Admitting Provider Urology; PCP Nurse Practitioner Family; Visit Provider Internal Medicine
PROC: 0VT08ZZ Resection of Prostate, Via Natural or Artificial Opening Endoscopic (ICD-10-PCS; principal; 2018-11-13 12:30)
PROC: 0VT08ZZ Resection of Prostate, Via Natural or Artificial Opening Endoscopic (ICD-10-PCS; CPT 52601; 2018-11-13 12:30)
DX: N21.0 Calculus in bladder (principal); D62 Acute posthemorrhagic anemia; N40.1 Benign prostatic hyperplasia with lower urinary tract symptoms; N32.0 Bladder-neck obstruction; N41.1 Chronic prostatitis; I48.91 Unspecified atrial fibrillation; I95.9 Hypotension, unspecified; K21.9 Gastro-esophageal reflux disease without esophagitis; I10 Essential (primary) hypertension; G47.33 Obstructive sleep apnea (adult) (pediatric); I25.10 Atherosclerotic heart disease of native coronary artery without angina pectoris; E11.9 Type 2 diabetes mellitus without complications; E78.5 Hyperlipidemia, unspecified; E86.0 Dehydration
CPT/HCPCS: 36410; 36415; 36430; 52318; 52601; 71275; 80048; 80051; 80053; 85027; 86850; 86900; 86901; 86920; 87040; 88305; 93306; 99232; 99239; 99254; NC; 81003; 81015; 82365; 83735; 83880; 84484; 85014; 85018; 85025; 87086; 93005; 93010; 99222; 99356; J0131; J1100; J1160; J1580; J1790; J1885; J2370; J2405; J2765; J3010; J3490; J7042; P9016

== ENCOUNTER 2018-11-22 05:33 | Emergency (ER) | payer MEDICARE, SELFPAY ==
[2018-11-22] VITALS (44 sets, daily range): BP systolic 99–138; BP diastolic 58–89; PULSE 62–79; RESP 18; TEMP 36.8; O2SAT 92–100
--- NOTE | 2018-11-22 05:49 | DI.CT_ITS ---
SYMPTOM/DIAGNOSIS: DIFFICULTY EATING, GENERALIZED ABD MALAISE CT ABDOMEN AND PELVIS: Comparison CT scan of the chest is 11/15/18. There is a small right and a moderate size left pleural effusion with subjacent infiltrate which may represent atelectasis or pneumonia. There are again seen post surgical changes of a gastric pull-up. Liver is normal in size. There are tiny hypodensities seen within the liver. They are too small for further characterization but likely reflect small cysts. There is intra and external hepatic biliary ductal dilatation. The common duct measures 1.1 cm. There are several stones seen within the gallbladder. There is soft tissue density seen in the distal bile ducts (Series 6, Image 51, 52) The pancreas, spleen and adrenal glands are unremarkable. The kidneys show normal and symmetric enhancement. There is no significant dilatation of the right renal collecting system. There does appear to be dilatation of the left renal collecting system to the level of the retroperitoneal soft tissue. The urinary bladder is intact. There is mild diffuse thickening of the wall of the urinary bladder which may be due to chronic outlet obstruction by an enlarged prostate gland vs cystitis. The prostate gland is lobulated and enlarged. A mass cannot be excluded. The bowel shows no evidence of obstruction or inflammation. There is diverticulosis of the colon but no evidence of acute diverticulitis. Nonspecific mildly dilated loops of small bowel are present. No obstructing lesion is seen. No findings to suggest an acute appendicitis are present. There is extensive soft tissue in the retroperitoneal space surrounding the aorta and involving the inferior vena cava. It measures 7.4 cm transverse x 3.8 cm AP. These measurements include the vascular structures. The infiltration involves the intraperitoneal fat in the celia-renal space in addition to the retroperitoneal space. This may represent adenopathy vs infiltrative mass. No acute osseous abnormality is seen. Multilevel degenerative changes are seen in the spine. There is diffuse subcutaneous edema present suggesting anasarca. IMPRESSION: 1. Dilated intra and extra hepatic bile ducts. The possibility of a common bile duct stone is raised. (Series 6, Images 51, 52). 2. Cholelithiasis 3. Retroperitoneal soft tissue extending from the level of the superior mesenteric artery to above the aortic bifurcation. This may represent an infiltrative mass vs adenopathy 4. Enlarged, lobulated prostate gland. Carcinoma cannot be excluded. 5. Bilateral pleural effusions, left greater than right. Subjacent infiltrates which may represent atelectasis or pneumonia. 6. Anasarca 7. Thickened urinary bladder wall. This may be secondary to the enlarged prostate mass vs cystitis 8. Status post gastric pull-up.
--- NOTE | 2018-11-22 05:51 | ED.GENADUL_ITS ---
Discharge Plan Disposition Patient Disposition: STILL A PATIENT Condition: Good Discharge Details Chief Complaint: GenMedical Clinical Impression: Dehydration, Near syncope Primary Care Provider: Lindy Dixon ED Provider: Rafael Mckay Home Meds and New Rx's Prescriptions: New dicyclomine 20 mg tablet 20 mg PO TID Qty: 20 RF: 0 No Action aspirin [Adult Aspirin Regimen] 81 mg tablet,delayed release (DR/EC) 81 mg PO DAILY RF: 0 atorvastatin 10 mg tablet 10 mg PO QHS RF: 0 docusate sodium [Colace] 100 mg capsule 100 mg PO QHS RF: 0 finasteride 5 mg tablet 5 mg PO DAILY RF: 0 metoprolol succinate 25 mg tablet extended release 24 hr 25 mg PO DAILY RF: 0 trazodone 50 mg tablet 50 mg PO DAILY RF: 0 magnesium hydroxide [Milk of Magnesia] 400 mg/5 mL Suspension 10 ml PO HS RF: 0 acetaminophen [Tylenol] 325 mg Capsule 650 mg PO Q6H PRNRF: 0 midodrine 5 mg Tablet 2.5 mg PO TID Qty: 21 RF: 0 Discharge Instructions Additional Instructions: I have included a copy of your most recent CT results please follow-up with your primary care doctor in the next 1 to 2 days and begin making outpatient appointments as scheduled during your last inpatient admission. Please return to the emergency department for repeat loss of consciousness shortness of breath or new concern. Referrals: Lindy Dixon [Primary Care Provider] - Discharge Data Discharge Date/Time-TO BE ENTERED AT DEPARTURE: 11/22/18 12:38 Medical Decision Making <Harsh Yi DO - Last Filed: 11/22/18 22:24> This is a 59-year-old male with past medical history of atrial fibrillation previous esophageal cancer, recent bladder stones, recent admission for bladder stones, subsequent urologic bleed, multiple vasovagal episodes at that time. He was recently discharged with the last 72 hours after having a notable cardiac work-up. He was discharged home on midodrine secondary to his chronic low blood pressure and vasovagal events. Today he contacted EMS when he was at home and stood up quickly and felt lightheaded. He did not pass out or have episodes of syncope. At the time EMS arrived he was asymptomatic and vital signs have normalized however he requested to come to the hospital for further evaluation. The patient's main complaint seems to be more focused around feeling like he cannot eat, and stating that he has not eaten or drunk much at all for the last few weeks. He states that he has a constant sensation of fullness in his epigastric region which feels similar to when he had esophageal cancer before. In spite of stating that he cannot eat or drink he still does demonstrate ability to tolerate p.o. with no choking, or actual difficulty swallowing. It seems to be more focused on lack of desire to eat. He does have home health nursing available at home. Physical exam demonstrates no significant abdominal abnormality, no guarding or rebound. Vital signs are stable. Out of concern that the patient expresses we will get a CT scan to evaluate for any epigastric, esophageal or abdominal mass. Scans are negative though, I do feel that the patient would be safe and appropriate for discharge home with close follow-up in outpatient basis with his PCP for further assessment and potential outpatient surgical consultation. He is able to tolerate p.o., and he otherwise demonstrates a benign abdominal exam. He shows no signs of lily or severe dehydration. 7:31 AM Patient's laboratory work-up is returned relatively benign, hemoglobin is notably stable, electrolytes are normal, renal function stable, lipase normal. EKG is unremarkable. There are pending CT scan results at this time. Please refer to Dr. Yojana gomez for final disposition his case will be signed out to him. Clinically the patient looks well, without severe signs of dehydration. EKG 6: 09 Rate 70, intervals normal, sinus rhythm, no significant ST elevations or depres sions, no T wave inversions, no significant Q waves. FINDINGS: Lungs: Bilateral atelectasis versus developing infiltrate. Pleural space: Bilateral pleural effusions larger on the left than right. Mediastinum: Large hiatal hernia distended with contrast. Liver: Subcentimeter hypodensities in the liver likely representing cysts. Gallbladder and bile ducts: Cholelithiasis. Dilated intrahepatic biliary ducts and common bile duct possibly secondary to a distal gallstone series 6 image 51 and 52. Common bile duct measures 1.1 cm. Pancreas: Normal. No ductal dilation. Spleen: Normal. No splenomegaly. Adrenals: Normal. No mass. Kidneys and ureters: Normal. No hydronephrosis. Stomach and bowel: Dilated loops of small bowel filled with contrast. Appendix: No evidence of appendicitis. Intraperitoneal space: Large stool load. Diverticuli without evidence of free air or free fluid. Retroperitoneal space: Extensive retroperitoneal soft tissue surrounding the aorta circumferentially with infiltration of the retroperitoneal fat, perirenal fat, intraperitoneal fat, and anterior pararenal space. Vasculature: Coronary artery disease and atherosclerotic disease. Anesthetic calcification of the aorta and branching vessels. Lymph nodes: The retroperitoneal soft tissue likely represent adenopathy or tumor mass. Bladder: Thickened irregular bladder wall may be an infectious process or secondary to the lobulated prostate invading the bladder wall. Reproductive: Enlarged lobulated prostate of concern for possible prostate carcinoma. Bones/joints: No acute fracture. No dislocation. Soft tissues: Anasarca. Fat distention of the inguinal canals. IMPRESSION: 1. Dilated intrahepatic biliary ducts and common bile duct with possible distal common bile duct stone series 6 image 5152. Cholelithiasis. 2. Retroperitoneal tumor mass or adenopathy with extensive retroperitoneal fat infiltration, perirenal fat infiltration, anterior pararenal fat infiltration and intraperitoneal fat infiltration. 3. Prostatomegaly with lobulated mass of concern for prostate cancer. 4. Thickened lobular bladder wall concerning for infectious process or infiltration from prostate mass. 5. Bilateral pleural effusions. Bibasilar atelectasis. 6. Coronary artery disease atherosclerotic disease. 7. Anasarca 8. Dilated small bowel. 9. Large hiatal hernia distended with contrast. Dictated and Authenticated by: Shania Ledesma MD. Ordering:[facility] MD <Rafael Mckay MD - Last Filed: 11/22/18 12:17> 11:12 AM patient resting comfortably in the emergency department no change in complaints repeat abdominal exam soft nontender without rebound or guarding. Patient CT returns showing some dilated intrahepatic biliary ducts and cholelithiasis without cholecystitis patient without right upper quadrant abdominal pain. Patient continues to have a retroperitoneal tumor mass with extensive retroperitoneal fat infiltration patient also has a thickened lobular bladder no evidence of infection on UA and a prostate mass patient likely consistent with a recent urologic procedure with Dr. Marie. Patient has confirmed home services visiting nurse with the patient's house on Saturday yesterday but has yet to follow-up with palliative care as planned during his last hospital admission. Patient states he has intermittent abdominal pain for which he takes Tylenol and as needed tramadol I will add Bentyl to his medication regime counseled about making sure to take all of the appropriate d oses of his pain medications. Patient to follow-up with his primary care doctor in the next 2 to 3 days patient agrees to return for any worsening condition increasing pain or other concern. HPI <Harsh Macdonald DO Kassidy - Last Filed: 11/22/18 22:24> General Date/Time Provider Initiated Documentation: 11/22/18 05:34 . HPI Narrative: This is a 67-year-old male with a past medical history of paroxysmal A. fib not on anticoagulation, recent bladder stones requiring intervention, cystoscopy, and your urology bleeding, as well as a history of esophageal cancer. He was recently just discharged with the last 72 hours after a prolonged stay for bladder stones, subsequent bleed, and subsequent multiple syncopal episodes here in the hospital which were felt to be vagal mediated. Patient presents today via EMS after complaint of near syncope. Patient states today when he woke up to go get his tramadol as he stood/sat up he got lightheaded. He did not pass out or syncopized. He had no chest pain chest heaviness or shortness of breath. His symptoms resolved on their own prior to arrival by EMS. He states that his symptoms are consistent with the episodes that he had here in the hospital. Since EMS arrival he has had no complaints of near syncope. He does feel that he is dehydrated, and states that he has not been able to eat or drink for weeks. He states that he constantly has a sensation of fullness in his stomach and has no desire to eat or drink. He does admit to previous history of esophageal cancer and did receive dilatations at [facility] in the past, and states that this again feels like he needs a dilatation. Currently he denies any vomiting, or severe abdominal pain. He does admit to the continued abdominal fullness and epigastric pain. He does have physical therapy and home health coming at home, and states that he feels like he has the resources he needs at home. Patient denies any other complaints at this time. He is able to get down both solids and liquids, but states that he does not want to and has no desire to. He denies any choking sensation when trying to eat. Related Data Home Medications Medication Instructions Recorded Confirmed aspirin 81 mg tablet,delayed 81 mg PO DAILY 09/16/18 11/22/18 release atorvastatin 10 mg tablet 10 mg PO QHS 09/16/18 11/22/18 docusate sodium 100 mg capsule 100 mg PO QHS 09/16/18 11/22/18 finasteride 5 mg tablet 5 mg PO DAILY 09/16/18 11/22/18 metoprolol succinate 25 mg 25 mg PO DAILY 09/16/18 11/22/18 tablet,extended release 24 hr trazodone 50 mg tablet 50 mg PO DAILY 09/16/18 11/22/18 acetaminophen [Tylenol] 650 mg PO Q6H PRN 11/10/18 11/22/18 magnesium hydroxide [Milk of 10 ml PO HS 11/10/18 11/22/18 Magnesia] midodrine 2.5 mg PO TID #21 tab 11/20/18 11/22/18 dicyclomine 20 mg PO TID #20 tab 11/22/18 Previous Rx's Medication Instructions Recorded midodrine 2.5 mg PO TID #21 tab 11/20/18 dicyclomine 20 mg PO TID #20 tab 11/22/18 Allergies Allergy/AdvReac Type Severity Reaction Status Date / Time ketorolac AdvReac Intermediate Other (See Unverified 11/22/18 05:39 Comment) General Stated Complaint: GenMedical AUDREY: 3 Review of Systems <Harsh Yi DO - Last Filed: 11/22/18 22:24> Review of Systems All systems reviewed & are unremarkable except as noted in HPI and below PFSH <Harsh Yi DO - Last Filed: 11/22/18 22:24> Social History Smoking/Tobacco Use Status: Former Tobacco Use Drug use: Never Substance use type: does not use Do you feel safe at home: Yes Do you feel safe in your relationship?: Yes Exam <Harsh Yi DO - Last Filed: 11/22/18 22:24> Narrative Exam Narrative: 1.Const: Well-nourished, Well-developed, appearing stated age 2.Eyes: PERRL, no conjunctival injection, and symmetrical lids. 3.ENT: Atraumatic external nose and ears. Moist MM. Neck: Symmetric, trachea midline, No thyromegaly. 4.CVS: +S1/S2, No murmurs or gallops. Peripheral pulses 2+ and equal in all extremities. Brisk capillary refill in all extremities. 5.RESP: Unlabored respiratory effort. Clear to auscultation bilaterally. No wheezes rales or rhonchi 6.GI: Soft, Nontender/Nondistended, No hepatosplenomegaly. No guarding or rebound. 7.MSK: Normocephalic/Atraumatic, Extremities w/o deformity or ttp No cyanosis or clubbing, Normal movement of all extremities 8.Skin: Warm, Dry. No rashes or lesions. 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 Sensation grossly intact, no focal neurologic deficits. 10.Psych: (AAO) x3. Appropriate mood and affect Course <Harsh Yi DO - Last Filed: 11/22/18 22:24> Vital Signs Temperature 36.8 C 11/22/18 05:35 Pulse 78 11/22/18 05:35 Respiratory Rate 18 11/22/18 05:35 Blood Pressure 101/73 11/22/18 05:35 Pulse Oximetry 99 11/22/18 05:35 Temperature 36.8 C 11/22/18 05:35 Temperature Source Skin 11/22/18 05:35 Pulse 78 11/22/18 05:35 Respiratory Rate 18 11/22/18 05:42 Respiratory Effort Non-Labored 11/22/18 05:42 Respiratory Depth Normal 11/22/18 05:42 Respiratory Pattern Normal 11/22/18 05:42 Blood Pressure 101/73 11/22/18 05:35 Blood Pressure Position Supine 11/22/18 05:35 Pulse Oximetry 99 11/22/18 05:35 Oxygen Delivery Method Room Air 11/22/18 05:35 Oxygen Flow Rate 0 11/22/18 05:35 Sign Out <Harsh Yi DO - Last Filed: 11/22/18 22:24> Sign Out Data: Sign Out Comment: Pending CT scan results. History of esophageal cancer, current complaint of near syncope and abdominal fullness. Last updated by Harsh Yi DO at 11/22/18 07:40
[2018-11-22] MEDS: Normal Saline 500 ML 1000 ML IV (06:16)
[2018-11-22 06:23] LABS: Abs Immature Grans 0.02 k/cumm (0.0-0.09); Absolute Basophil Count 0.01 k/cumm (0.0-0.2); Absolute Eosinophil Count 0.03 k/cumm (0.0-0.7); Absolute Lymphocyte Count 0.69 k/cumm (1.2-3.4); Absolute Monocyte Count 0.53 k/cumm (0.11-0.7); Absolute Neutrophil Count 3.94 k/cumm (1.2-6.7); Basophils % 0.2; Eosinophils % 0.6; HCT 32.5 % (40.0-50.0); HGB 10.8 g/dL (13.5-17.5); Immature Grans % 0.4; Lymphocytes % 13.2; Mean Corp. HGB Concentration 33.2 g/dL (32.0-36.0); Mean Corpuscular Volume 90.3 fL (80-95); Mean Platelet Volume 8.8 fL (8.0-11.0); Monocytes % 10.2; Neutrophils % 75.4; Platelet Count 234 x1000/uL (130-400); RBC Distribution Width 16.4 % (11.8-14.1); White Blood Cell Count 5.22 k/cumm (4.4-10.8)
[2018-11-22] MEDS: Breeza Beverage 473 ML BTL PO ×2 (06:38→06:40)
[2018-11-22 06:39] LABS: ALT 12 U/L (12-78); AST 8 U/L (15-37); Albumin 3.3 g/dL (3.4-5.0); Alkaline Phosphatase 95 U/L (46-116); Anion Gap 9.9 mmol/L (3-11); BUN 15 mg/dL (7-18); Bilirubin, Total 0.6 mg/dL (0.2-1.0); CO2 24.1 mmol/L (21.0-32.0); CREATININE 0.81 mg/dL (0.70-1.30); Calcium 9.1 mg/dL (8.5-10.1); Chloride 102 mmol/L (98-107); Glucose 97 mg/dL (70-100); Lipase 35 U/L (73-393); Potassium 4.3 mmol/L (3.5-5.1); Sodium 136 mmol/L (136-145); Total Protein 7.1 g/dL (6.4-8.2)
[2018-11-22] MEDS: Omnipaque 350 MG/ML 50 ML BTL IJ (06:39)
[2018-11-22] MEDS: Acetaminophen 500 MG TAB 1000 MG PO (06:58)
--- NOTE | 2018-11-22 06:59 | NUR.NOTE ---
Nursing Note: pt resting in stretcher, no signs of distress. facial expression and body language relaxed. pt c/o lower abdominal pain. MD notified. Tylenol ordered. pt drinking contrast for CT, educated on plan of care. understanding verbalized.
[2018-11-22] MEDS: Omnipaque 350 MG/ML 100 ML BTL IJ (08:18)
--- NOTE | 2018-11-22 10:10 | DI.VRAD_ITS ---
EXAM: CT Abdomen and Pelvis With Contrast EXAM DATE/TIME: 11/22/2018 5:51 AM CLINICAL HISTORY: 67 years old, male; Nausea and vomiting; Prior surgery; Surgery date: 6+ months; Surgery type: PT has history of esophageal cancer, 2/3 of the esophagus was removed and most of the stomach, January 2018. PT had bladder stones prostate biopsy removed last week. TECHNIQUE: Imaging protocol: Axial computed tomography images of the abdomen and pelvis with intravenous contrast. Coronal and sagittal reformatted images were created and reviewed. Radiation optimization: All CT scans at this facility use at least one of these dose optimization techniques: automated exposure control; mA and/or kV adjustment per patient size (includes targeted exams where dose is matched to clinical indication); or iterative reconstruction. Contrast material: OMNIPAQUE 350; Contrast volume: 100 ml; Contrast route: IV; COMPARISON: No relevant prior studies available. FINDINGS: Lungs: Bilateral atelectasis versus developing infiltrate. Pleural space: Bilateral pleural effusions larger on the left than right. Mediastinum: Large hiatal hernia distended with contrast. Liver: Subcentimeter hypodensities in the liver likely representing cysts. Gallbladder and bile ducts: Cholelithiasis. Dilated intrahepatic biliary ducts and common bile duct possibly secondary to a distal gallstone series 6 image 51 and 52. Common bile duct measures 1.1 cm. Pancreas: Normal. No ductal dilation. Spleen: Normal. No splenomegaly. Adrenals: Normal. No mass. Kidneys and ureters: Normal. No hydronephrosis. Stomach and bowel: Dilated loops of small bowel filled with contrast. Appendix: No evidence of appendicitis. Intraperitoneal space: Large stool load. Diverticuli without evidence of free air or free fluid. Retroperitoneal space: Extensive retroperitoneal soft tissue surrounding the aorta circumferentially with infiltration of the retroperitoneal fat, perirenal fat, intraperitoneal fat, and anterior pararenal space. Vasculature: Coronary artery disease and atherosclerotic disease. Anesthetic calcification of the aorta and branching vessels. Lymph nodes: The retroperitoneal soft tissue likely represent adenopathy or tumor mass. Bladder: Thickened irregular bladder wall may be an infectious process or secondary to the lobulated prostate invading the bladder wall. Reproductive: Enlarged lobulated prostate of concern for possible prostate carcinoma. Bones/joints: No acute fracture. No dislocation. Soft tissues: Anasarca. Fat distention of the inguinal canals. IMPRESSION: 1. Dilated intrahepatic biliary ducts and common bile duct with possible distal common bile duct stone series 6 image 5152. Cholelithiasis. 2. Retroperitoneal tumor mass or adenopathy with extensive retroperitoneal fat infiltration, perirenal fat infiltration, anterior pararenal fat infiltration and intraperitoneal fat infiltration. 3. Prostatomegaly with lobulated mass of concern for prostate cancer. 4. Thickened lobular bladder wall concerning for infectious process or infiltration from prostate mass. 5. Bilateral pleural effusions. Bibasilar atelectasis. 6. Coronary artery disease atherosclerotic disease. 7. Anasarca 8. Dilated small bowel. 9. Large hiatal hernia distended with contrast. Dictated and Authenticated by: Shania Ledesma MD. Ordering:WING House MD
[2018-11-22 11:33] LABS: Bilirubin Negative (Negative); Blood Large (Negative); Clarity Sl Cloudy (Clear); Glucose Negative (Negative); Ketones Negative (Negative); Leukocyte Esterase Trace (Negative); Nitrite Negative (Negative); Urobilinogen 0.2 EU/dL (Up TO 0.2)
[2018-11-22 11:48] LABS: Bacteria Few HPF (Negative); C & S Indicated? Yes; Casts Negative LPF (Negative); Crystals Negative HPF (Negative); Epithelial Cells Negative HPF (Negative); Mucus Trace (Negative); RBC 20-50 (0-2)
[2018-11-22] MEDS: Dicyclomine 10 MG CAP PO (12:31)
[2018-11-22] MEDS: Acetaminophen 500 MG TAB PO (12:31)
== END 2018-11-22 12:38 | disposition still patient (30) ==
PROVIDERS: Student in an Organized Health Care Education/Training Program; Emergency Provider Emergency Medicine; PCP Nurse Practitioner Family
DX: E86.0 Dehydration (principal); R55 Syncope and collapse; N40.0 Benign prostatic hyperplasia without lower urinary tract symptoms; K80.70 Calculus of gallbladder and bile duct without cholecystitis without obstruction; I48.91 Unspecified atrial fibrillation
CPT/HCPCS: 36415; 80053; 83690; 93005; 99285; 74177; 81003; 81015; 85025; 87086; 93010; J3490; Q9967